=== PATIENT | female | born 1995 | race Caucasian/White ===

== ENCOUNTER 2024-01-06 21:53 | Outpatient (REF) | payer OTHER, SELFPAY | END 2024-01-06 21:54 | disposition home or self-care (01) | LOC: LAB 21:53 | PROVIDERS: Visit Provider Obstetrics & Gynecology | DX: Z01.419 Encounter for gynecological examination (general) (routine) without abnormal findings (principal) | CPT/HCPCS: 88175 ==

== ENCOUNTER 2024-08-13 19:43 | Outpatient (REF) | payer OTHER, SELFPAY ==
--- OUTSIDE RECORDS SUMMARY | 2024-05-29 06:00 | XMS_ITS ---
Author Organization [facility] Address [address] [place], [place] [id number] Care Team Providers Care Certified Art Therapist Name Role Phone Chandni Cervantes Primary Care Provider Renetta Jiménez Unavailable [phone] REASON FOR VISIT 2 WEEK F/U Social History Sex Assigned At : Social History Observation Description Sex Assigned At Female Encounters Encounter Location Date Provider Diagnosis Main [address] [place], [place] [id number] 05/29/2024 Renetta Jiménez Plan Of Treatment No Information Progress Notes * Efrain VITALOB: 7 (29 yo F)Acc No.[id number]:05/29/2024 Patient: Adria LOPEZJoanna SMALLWOOD Provider: DEBI Redd :1995 A ge:29 Y S ex:Female Date:05/29/2024 Address:[address] [place] [address], [id number] Pcp:Chandni Cervantes Subjective: * Chief Complaints: * 1 . 2 WEEK F/U. * Medical History: Objective: * Vitals: Assessment: Plan: * Treatment: Care Plan: * Problems: * Billing Information: * Visit Code: * Procedure Codes: Care Plan Details* * Electronic signature of DEBI Cleveland on 08/13/2024 at 11:46 AM EDT Sign off status: Pending * Provider: DEBI Redd Date: 05/29/2024 Generated for Marcelino brooks/Deepali/Dayanaitting on: 0 08/13/2024 11:46 AM EDT
--- OUTSIDE RECORDS SUMMARY | 2024-08-13 11:50 | XMS_ITS | Encounter Summary ---
Author Organization [facility] Address [address] [place] [address] Care Team Providers Care Field Investigator Name Role Phone Unavailable Primary Care Provider Unavailabl e Reason for Visit * Reason Comments Breast Problem Encounter Details Date Type Department Care Team ([facility] Contact Info) Description 08/13/2024 11:50 AM EDT Office Visit [facility] [address] [place] [phone] Clem Orellana, DO [address] [facility] [address] [place], [place] [phone] Pain of both breasts; Menorrhagia with regular cycle; Nipple discharge Social History Tobacco Use Types Packs/Day Years Used Date Smoking Tobacco: Former Cigarettes 1 10 Q uit: 10/18/2021 Alcohol Use Standard Drinks/Week Comments Yes 0 (1 standard drink = 0.6 oz pure alcohol) Maybe once a month or every other month ill have a drink Comments No Sex and Gender Information Value Date Recorded Sex Assigned at Female 10/30/2023 10:24 PM EDT Legal Sex Female 11:47 PM EDT Gender Identity Female 10/30/2023 10:24 PM EDT Sexual Orientation Straight 10/30/2023 10 :24 PM EDT documented as of this encounter Last Filed Vital Signs Vital Sign Reading Time Taken Comments Blood Pressure 98/72 08/13/2024 12:10 PM EDT Pulse - - Temperature - - Respiratory Rate - - Oxygen Saturation - - Inhaled Oxygen Concentration - - Weight 80.4 kg (177 lb 4 oz) 08/13/2024 12:10 PM EDT Height - - Body Mass Index 32.42 01/06/2024 4:03 PM EDT documented in this encounter Plan of Treatment Upcoming Encounters Date Type Department Care Team (Late st Contact Info) Description 08/26/2024 8:00 AM EDT Office Visit [facility] [address] [facility] [place] [address] Clem Orellana, DO [address] [place] [address] Scheduled Orders Name Type Priority Associated Diagnoses Orde r Schedule CBC and differential Lab Routine Menorrhagia with regular cycle Ordered: 08/13/2024 TSH Lab Routine Menorrhagia with regular cycle Ordered: 08/13/2024 hCG, quantitative, Lab Routine Menorrhagia with regular cycle Ordered: 08/13/2024 Protime-INR Lab Routine Menorrhagia with regular cycle Ordered: 08/13/2024 T4, free Lab Routine Menorrhagia with regular cycle Ordered: 08/13/2024 APTT Lab Routine Menorrhagia with regular cycle Expected: 08/13/2024 (Approximate), Expires: 08/13/2025 Hemoglobin A1c Lab Routine Menorrhagia with regular cycle Ordered: 08/13/2024 Prolactin Lab Routine Pain of both breasts Nipple discharge Ordered: 08/13/2024 Anaerobic culture Microbiology Routine Pain of both breasts Nipple discharge Expected: 08/13/2024 (Approximate), Expires: 08/13/2025 Aerobic culture Microbiology Routine Pain of both breasts Nipple discharge Ordered: 08/13/2024 documented as of this encounter Visit Diagnoses Diagnosis Pain of both breasts Menorrhagia with regular cycle Nipple discharge Other sign and symptom in breast documented in this encounter
--- OUTSIDE RECORDS SUMMARY | 2024-08-13 19:48 | XMS_ITS | Clinical Summary ---
Author Organization [facility] Address [address] [place] [address] Care Team Providers Care Residential Installer Name Role Phone Unavailable Primary Care Provider Unavailabl e Allergies No known active allergies Medications sertraline (Zoloft) 50 MG tablet Take 50 mg by mouth Daily 12/14/2022 Active traZODone (Desyrel) 25 MG split tablet Take 25 mg by mouth at bedtime Active hydrOXYzine pamoate (Vistaril) 25 MG capsule Take 25 mg by mouth 1 (one) time each day at the same time 06/28/2023 Active ergocalciferol (Vitamin D-2) 1.25 MG (28424 UT) capsule 1 capsule 11/07/2023 Active amoxicillin-cla vulanate (Augmentin) 875-125 MG tabletIndicatio ns:Pain of both breasts,Nipple discharge Take 1 tablet (875 mg) by mouth in the morning and 1 tablet (875 mg) before bedtime. Do all this for 10 days. 20 tablet 08/13/2024 Active Encounters Date Type Department Care Team Description 08/13/2024 11:50 AM EDT Office Visit [facility] OB [address] [facility] [place] [phone] Clem Orellana, Pain of both breasts; Menorrhagia with regular cycle; Nipple discharge 08/13/2024 Bamboo flowsheet [facility] OB [address] [facility] [place] [phone] Clem Orellana DO 08/13/2024 Travel from Last 3 Months Family History Medical History Relation Name Comments Hypertension Father Dmitry Vital Breast cancer Mother Mothers side of family. Mul tiple. Endometriosis Mother Mothers side of family. Mul tiple. Relation Name Status Comments Father Dmitry Vital Mother Mothers side of family. Multiple. Social History Tobacco Use Types Packs/Day Years Used Date Smoking Tobacco: Former Cigarettes 1 10 Q uit: 10/18/2021 Tobacco Cessation:Counseling Given: Not Answered Alcohol Use Standard Drinks/Week Comments Yes 0 [...] Orientation Straight 10/30/2023 10 :24 PM EDT Last Filed Vital Signs Vital Sign Reading Time Taken Comments Blood Pressure 98/72 08/13/2024 12:10 PM EDT Pulse - - Temperature - - Respiratory Rate - - Oxygen Saturation - - Inhaled Oxygen Concentration - - Weight 80.4 kg (177 lb 4 oz) 08/13/2024 12:10 PM EDT Height 157.5 cm (5' 2 ) 01/06/2024 4:03 PM EDT Body Mass Index 32.42 01/06/2024 4:03 PM EDT Plan of Treatment Upcoming Encounters Date Type Department Care Team (Late st Contact Info) Description 08/26/2024 8:00 AM EDT Office Visit [facility] OB [address] [facility] [place] [address] Clem Orellana, [address] [place] [address] Health Maintenance Due Date Last Done Comments Influenza Vaccine Completed 05/28/2024, 11/15/2019 Insurance * Guarantor: Joanna Vital Account Type Relation to Patient Date of Phone Billing Address Personal/Family Self 1995 [address] [facility] [address] [place] [address] [employer] Member Subscriber Plan / Payer (Ef fective 2022-Present) Name:Joanna Vital Relation to Subscriber:Self Name:Amanuel Joanna Payer ID:Not on file Group ID:Not on file Type:Not on file Address: [address] [place] [address]
--- OUTSIDE RECORDS SUMMARY | 2024-08-13 19:48 | XMS_ITS | Clinical Summary ---
Author Organization [facility] Address [id number] [address] [place] [address] Care Team Providers Care Shipping Manager Name Role Phone Services, [facility] Primary Care Provider Allergies No known active allergies Medications sertraline (ZOLOFT) 50 mg tablet Take 1 tablet (50 mg total) by mouth in the morning. 12/14/2022 Active Active Problems No known active problems Encounters Date Type Department Care Team Description 06/01/2024 Telephone [facility] [address] [place] [address] Taylor Valdes CMA 06/01/2024 Telephone [facility] [address] [place] [address] Taylor Valdes CMA from Last 3 Months Social History Tobacco Use Types Packs/Day Years Used Date Smoking Tobacco: Former Cigarettes 1 9 0 11/22/2012 - 11/22/2021 Tobacco Cessation:Counseling Given: Not Answered Childcare Answer Date Recorded Childcare Unknown 08/20/2018 Employment Answer Date Recorded Employment Unknown 08/20/2018 Hunger Screening Answer Date Recorded Within the past 12 months we worried whether our food would run out before we got money to buy more. Never True 04/29/2024 Within the past 12 months th e food we bought just didn't last and we didn't have money to get more. Never True 04/29/2024 Comments Unknown Sex and Gender Information Value Date Recorded Sex Assigned at Not on file Legal Sex Female 11:53 AM EDT Gender Identity Not on file Sexual Orientation Not on file Last Filed Vital Signs Vital Sign Reading Time Taken Comments Blood Pressure 117/74 04/29/2024 10:41 AM EST Pulse 83 04/29/2024 10:40 AM EST Temperature 36.8 C (98.2 F) 04/29/2024 10:40 AM EST Respiratory Rate 18 04/29/2024 10:40 AM EST Oxygen Saturation 100% 04/29/2024 10:40 AM EST Inhaled Oxygen Concentration - - Weight 72.6 kg (160 lb) 04/29/2024 10:40 AM EST Height 157.5 cm (5' 2 ) 04/29/2024 10:40 AM EST Body Mass Index 29.26 04/29/2024 10:40 AM EST Plan of Treatment Health Maintenance Due Date Last Done Comments Depression Screening 2009 Tobacco Screening 2009 Adult BMI Follow Up Plan 2015 DTaP,Tdap and Td Vaccines (7 - Td or Tdap) 12/30/2019 12/29/2009, 11/27/2002, 11/14/2000, Additional history exists COVID-19 Vaccine (3 - 2023-2 5 season) 2023 10/03/2020, 09/05/2020 Influenza Vaccine 11/09/2024 05/28/2024, 11/15/2019 Adult BMI Screening 04/29/2025 04/29/2024 Pap Smear 01/05/2027 01/06/2024 Medical Devices Not on file Insurance * Guarantor: Joanna Vital Account Type Relation to Patient Date of Phone Billing Address Personal/Family Self [address] [place] [address] [employer] Member Subscriber Plan / Payer (Ef fective 2020-Present) Name:Joanna Vital Member ID:[id number] Relation to Subscriber:Self Name:Joanna Vital Subscriber ID:[id number] Payer ID:[id number] (NAIC) Type:Not on file Address: [facility] [address] [place] [address] [employer] Member Subscriber Plan / Payer (Ef fective 2022-Present) Name:Joanna Vital Relation to Subscriber:Self Name:Joanna Vital Payer ID:[id number] (NAIC) Group ID:Not on file Type:Not on file Address: [address] [address] Care Teams Shipping Manager Relationship Specialty Start Date End Date Services, [facility] [address] [place], [place] PCP - General Family Medicine 04/29/24
--- OUTSIDE RECORDS SUMMARY | 2024-08-13 19:48 | XMS_ITS | Data Portability ---
Author Organization [place] - [facility] , [facility] [place] Address [address] [place] [address] Assessment No assessment recorded. Plan of Treatment Reminders Order Date Submit Date Provider Last Modified By Organization Details Last Modified Time Details Appointments None recorded . Lab None recorded . Referral None recorded . Procedures None recorded . Surgeries None recorded . Imaging US, breast 025 04/02/19 25 [email or web address] Not available 09:03:23 Medication Orders None recorded . Patient TargetsNo targets recorded. Patient Instructions Encounter Date Encounter Id Patient Instructions Last Modified By Organization Details Last Modified Time 04/02/2024 [id number] nipple discharge : care instructions Not available 04/02/2024 12:22:24 breast lumps: care instructions Not available 04/02/2024 12:22:24 Reason for Referral None Reported. Problems Name Problem SNOMED Code Status Onset Date Resolution Date Notes Provider Name and Address Organization Details Recorded Time Depressive disorder [id number] Active Rosalinda Franklin [facility] [place] - Included [facility] 13:47:26 Problem Notes None recorded. Procedures Surgical History Date Name Laterality Status Provider Name and Address Organization Details Recorded Time procedure completed Rosalinda Franklin [facility] I [facility] 02/12/2024 13:47:57 Imaging Results None recorded. Procedure Notes None recorded. Medical Equipment None Reported. Allergies No known drug allergies Medications Name Sig Start Date Stop Date Status Note LastModified by Organization Details LastModified Time trazodone 50 mg tablet TAKE 1 TABLET BY MOUTH AT BEDTIME NEEDED FOR 30 DAYS active Not Available Not Available No t Available ibuprofen 800 mg tablet TAKE 1 TABLET BY MOUTH EVERY 8 HOURS active Not Available Not Available No t Available sertraline 100 mg tablet TAKE 1 TABLET BY MOUTH ONCE DAILY IN THE MORNING FOR 30 DAYS active Not Available Not Available No t Available ergocalcife rol (vitamin D2) 1,250 mcg (50,000 unit) capsule TAKE 1 CAPSULE BY MOUTH ONCE A WEEK active Not Available Not Available No t Available methylpredn isolone 4 mg tablets in a dose pack 04/02 completed Not Available Not Available Not Available sertraline 50 mg tablet TAKE 1 TABLET BY MOUTH ONCE DAILY IN THE MORNING 04/02 completed Not Available Not Available Not Available hydroxyzine pamoate 25 mg capsule TAKE 1 TO 2 CAPSULES BY MOUTH ONCE DAILY NEEDED FOR SLEEP active Not Available Not Available No t Available cyclobenzap rine 5 mg tablet 04/02 completed Not Available Not Available Not Available minocycline 50 mg tablet TAKE 1 TABLET BY MOUTH TWICE DAILY (IN THE MORNING AND BEFORE BEDTIME) 04/02 completed Not Available Not Available Not Available sertraline 50mg 04/02 completed Not Available Not Available Not Available Augmentin 01/15 completed Not Available Not Available Not Available Vitals None Recorded Social History None recorded. Functional Status None recorded. Mental Status None recorded. Family History Relationship Description Onset Age of this Age Resolved Age Notes LastModified by Organization Details LastModified Time Father No current problems or disability [email or web address] Not available 02/11 13:48:03 Mother No current problems or disability [email or web address] Not available 02/11 13:48:03 Medical History No medical history recorded. Gynecological HistoryNo gynecological history recorded. Obstetrics History GPAL:G 0 P 0 0 0 0 Past Encounters Encounter ID Performer Location Encounter Start Date Encounter Closed Date Diagnosis/Indication Diagnosis SNOMED-CT Code Diagnosis ICD10 Code Diagnosis Note [id number] AASHISH Still [facility] [address] [facility] [address] [place] [address] 04/02/2024 11:49:01 04/02/2024 18:22:52 Breast lump [id number] N63.0 Ultrasound ordered. I advised patient to use cold compress or soak a cloth in warm water and place on breast. I also advised tylenol or ibuprofen for pain relief. Patient also instructed to avoid tight fitting clothes. Advised to schedule appt with pcp or information technology security analyst for further eval. I advised the patient if their symptoms worsen or do not improve, to call us back or seek in person care. Diagnosis and treatment plan discussed with the patient, and they voice agreement and understand ing of the plan. Discharge from nipple 54 [id number] N64.52 Health Concerns Section Related Observation LastModified by Organization Detai ls LastModified Time None Recorded Concern Status LastModified by Organization Details LastModified Time None Recorded Advance Directives Directive None Recorded Payers Insurance Date Sequence Insurance Name Policy Number Policy Ramirez Covered Member ID Ramirez Member ID Guarantor Name 01/26/2024 1 *SELF PAY* Jarra Vital [place] Jarra Vital 01/17/2024 1 *SELF PAY* Ja rra Vital 04/15/2024 1 DMITRI ORELLANA [facility] [id number] Jarra Vital [id number] Jarra Vital 04/09/2024 DMITRI ORELLANA [id number] Jarra Vital [id number] Jarra Vital 04/02/2024 2 *SELF PAY* [id number] Jarra Vital [id number] Jarra Vital Notes Date Note Type Note Provider Name and Address Organization Details Recorded Time 04/02/2024 text/html Call connected, patient greeted. Patient name, , telephone number, and location verified verbally with the patient. Telemedicine limitations reviewed, answered all questions the patient had about the telehealth interaction, and verbal consent obtained to treat. Clinician attests they are physically located in the following state at the time of visit : [place] CC: questionAge: 29Gender: f HPI:She has hx of endometriosis. Right before her period she gets lumps in her breast and breast pain. This pain usually goes away.Currently she has a lump on her right breast that has been there for a week. She noticed discharge coming from her nipple today that was brownish/green. The discharge isn't persistent currently.She does have some breast pain/nipple pain.She started spotting 4 days ago but period hasn't technically started.LMP around February 27.No possibility of .Pain is about 3/10.no fever.no skin redness. no nipple redness or swelling.Family hx: breast cancer on mom's side of the familyno new medications Not . Physical Exam:General: no acute distress, appears stated age, appropriately responsiveHEENT: NCAT, EOMIRespiratory: no respiratory distress, speaking in complete sentencesSkin: no visible rash or jaundicePsych: normal affect, no pressured speechSkin: nickel sized lump noted to medial aspect of right breast, no nipple discharge, no nipple swelling, no erythema AASHISH Still [address] [place] [address] [address], [place], [address], [facility] 04/02/2024 12:24:12 OBGyn Episode No OBEpisode recorded.
--- OUTSIDE RECORDS SUMMARY | 2024-08-13 19:48 | XMS_ITS | Encounter Summary ---
Author Organization [facility] Address [address] [place] [address] Care Team Providers Care Freelance Court Stenographer Name Role Phone Unavailable Primary Care Provider Unavailabl e Encounter Details Date Type Department Care Team (Latest Contact Info) Description 08/13/2024 Travel Social History Tobacco Use Types Packs/Day Years [...] PM EDT documented as of this encounter Plan of Treatment Upcoming Encounters Date Type Department Care Team (Late st Contact Info) Description 08/26/2024 8:00 AM EDT Office Visit [facility] [address] [address] Clem Orellana, DO [address] [place] [address] documented as of this encounter Visit Diagnoses Not on filedocumented in this encounter
--- OUTSIDE RECORDS SUMMARY | 2024-08-13 19:48 | XMS_ITS | Encounter Summary ---
Author Organization [facility] Address [address] [facility] [place] [address] Care Team Providers Care Checkroom Attendant Name Role Phone Unavailable Primary Care Provider Unavailabl e Encounter Details Date Type Department Care Team ([facility] Contact Info) Description 01/15/2024 Orders Only [facility] [address] [place] [address] Yuni Celeste LPN [address] [place] [address] Social History Tobacco Use Types Packs/Day Years [...] Upcoming Encounters Date Type Department Care Team ([facility] Contact Info) Description 08/26/2024 8:00 AM EDT Office Visit [facility] [address] [facility] [facility] [place] [address] Clem Orellana DO [address] [place] [address] [address], [place] [id number] documented as of this encounter Procedures Procedure Name Priority Date/Time Associated Diagnosis Comments PAP SMEAR Routine 01/06/2024 12:00 AM EDT documented in this encounter Results * Pap Smear (01/06/2024 12:00 AM EDT) Swab Cervical swab / Unknown us Clem Orellana DO LAB CYTOLOGY ORDERABLES Final Re sult EXTERNAL LAB documented in this encounter Visit Diagnoses Not on filedocumented in this encounter
--- OUTSIDE RECORDS SUMMARY | 2024-08-13 19:48 | XMS_ITS | Encounter Summary ---
Author Organization [facility] Address [address] [place] [address] Care Team Providers Care Command Post Craftsman Name Role Phone Unavailable Primary Care Provider Unavailabl e Encounter Details Date Type Department Care Team (Late Contact Info) Description 08/13/2024 Bamboo flowsheet [facility] [address] [place] [address] Clem Orellana, DO [address] [place] [address] Social History Tobacco Use Types Packs/Day [...] Encounters Date Type Department Care Team (Late Contact Info) Description 08/26/2024 8:00 AM EDT Office Visit [facility] [address] [place] [address] Clem Orellana, [facility] [place], [place] [id number] documented as of this encounter Visit Diagnoses Not on filedocumented in this encounter
--- OUTSIDE RECORDS SUMMARY | 2024-08-13 19:50 | XMS_ITS | CCD ---
Author Organization [facility] Care Team Providers Care Track Greaser Name Role Phone PHYSICIAN, DEFAULT Unavailable Unavailable PHYSICIAN, DEFAULT Unavailable Unavailable Gladis Lopez CNP Primary Care Provider CADE CROWLEY Primary Care Unavailable ESTEBAN, DR BALTAZAR Admitting Unavailable ESTEBAN, DR BALTAZAR Attending Unavailable ESTEBAN, DR BALTAZAR Consulting Unavailable ZIEBER, DR AMADEO Galicia Consulting Unavailable ESTEBAN, DR BALTAZAR Admitting Unavailable ESTEBAN, DR BALTAZAR Attending Unavailable ESTEBAN, DR BALTAZAR Consulting Unavailable CADE CROWLEY Primary Care Unavailable KEO, CADE Primary Care Unavailable ESTEBAN, DR BALTAZAR Admitting Unavailable ESTEBAN, DR BALTAZAR Attending Unavailable ESTEBAN, DR BALTAZAR Consulting Unavailable REQUEST, DR BERMAN LISTED Primary Care Unavaila ble ESTEBAN, DR BALTAZAR Admitting Unavailable ESTEBAN, DR BALTAZAR Attending Unavailable CADE CROWLEY Primary Care Unavailable ESTEBAN, DR BALTAZAR Admitting Unavailable ESTEBAN, DR BALTAZAR Attending Unavailable ESTEBAN, DR BALTAZAR Consulting Unavailable ESTEBAN, DR BALTAZAR Primary Care Unavailable ESTEBAN, DR BALTAZAR Admitting Unavailable ESTEBAN, DR BALTAZAR Attending Unavailable ESTEBAN, DR BALTAZAR Consulting Unavailable SARAH HESTER Consulting Unavailable PILY LAZO Attending Unavailable SULLY DAWSON Referring Unavailable SULLY DAWSON Primary Care Unavailable Unavailable Primary Care Provider Unavailqian e DELANEY ORELLANA Attending Unavailable DELANEY ORELLANA Attending Unavailable Sully Dawson DO Primary Care Provider [phone] SERVICES, [facility] Primary Care Unava ilSANDY May Attending Unavailable Services, [facility] Primary Care Provider Medications Current Medications Medication Drug Class(es) Dates Sig (Normalized) Sig (Original) ergocalciferol 1.25 mg oral capsule (3 sources) Provitamin D2 Compound Start: 11-07-2023 ergocalciferol (Vitamin D-2) 1.25 MG (85864 UT) capsule 1 capsule 11/07/2023 Active famotidine 40 mg oral tablet (2 sources) Histamine-2 Receptor Antagonist Start: 09-05-2020 Famotidine 40 MG Oral Tablet 09/05/2020 Provider: Gladis Lopez CNP hydrOXYzine pamoate 25 mg oral capsule (6 sources) Antihistamine Start: 06-28-2023 take 1 capsule by mouth once daily hydrOXYzine pamoate (Vistaril) 25 MG capsule Take 25 mg by mouth 1 (one) time each day at the same time 06/28/2023 Active ibuprofen 800 mg oral tablet (3 sources) Nonsteroidal Anti-inflammatory Drug Start: 01-06-2024 End: 02-05-2024 take 1 tablet by mouth every eight hours ibuprofen 800 MG tablet Indications: Endometriosis, vagina Take 1 tablet (800 mg) by mouth every 8 (eight) hours 30 tablet 2 01/06/2024 02/05/2024 Active minocycline 50 mg oral tablet (2 sources) Tetracycline-class Drug Start: 11-05-2023 End: 12-05-2023 take 1 tablet by mouth in the morning minocycline (Dynacin) 50 MG tablet Indications: Acne, unspecified acne type Take 1 tablet (50 mg) by mouth in the morning and 1 tablet (50 mg) before bedtime. 60 tablet 1 11/05/2023 12/05/2023 Active sertraline 50 mg oral tablet (15 sources) Serotonin Reuptake Inhibitor Start: 12-14-2022 take 1 tablet by mouth in the morning sertraline (ZOLOFT) 50 mg tablet Take 1 tablet (50 mg total) by mouth in the morning. 12/14/2022 Active Start: 08-22-2020 Sertraline HCl 25 MG Oral Tablet 08/22/2020 Provider: Gladis Lopez CNP traZODone (Desyrel) 25 MG split tablet (6 sources) take 1 tablet by keena th at bedtime traZODone (Desyrel) 25 MG split tablet Take 25 mg by mouth at bedtime Active Problems Active Problems Problem Classification Problem Date Documented Date Episodic/Chronic Alcohol-related disorders (3 sources) Alcohol abuse; Translations: [Alcohol abuse, unspecified] Onset: 08-24-2020 Chronic Anxiety disorders (12 sources) Generalized anxiety disorder; Translations: [Generalized anxiety disorder] Onset: 08-22-2020 Chronic Coma; stupor; and brain damage (2 sources) Somnolence; Translations: [Daytime somnolence] Onset: 05-22-2023 05-22-2023 Episodic Endometriosis (4 sources) Endometriosis of vagina; Translations: [Endometriosis, vagina] 01-06-2024 Chronic Esophageal disorders (3 sources) Gastroesophageal reflux disease without esophagitis; Translations: [Reflux esophagitis] Onset: 09-05-2020 Chronic Inflammatory diseases of female pelvic organs (1 source) Female pelvic peritoneal adhesions (postinfective); Translations: [FE PELV PERITON ADHES POSTINFECTIVE] Onset: 04-20-2021 Episodic Menstrual disorders (6 sources) Irregular menstruation, unspecified; Translations: [Menorrhagia] Onset: 11-30-2020 Chronic Miscellaneous mental health disorders (2 sources) depression; Translations: [Mental disorders of mother, unspecified as to episode of care or not applicable] Onset: 09-05-2020 Episodic Mood disorders (11 sources) Depressive disorder; Translations: [Major depressive disorder, single episode, unspecified] Onset: 08-22-2020 Chronic Mood disorders (1 source) Mood disorders; Translations: [DEPRESSION UNSPECIFIED] Onset: 04-20-2021 Nonmalignant breast conditions (2 sources) Unspecified lump in the right breast, lower outer quadrant; Translations: [Mastodynia] Onset: 04-29-2024 Episodic Nutritional deficiencies (3 sources) Vitamin D deficiency; Translations: [Unspecified vitamin D deficiency] Onset: 08-22-2020 Chronic Nutritional deficiencies (3 sources) Vitamin B12 deficiency (non anemic); Translations: [Other B-complex deficiencies] Onset: 08-22-2020 Episodic Other aftercare (1 source) Other retirement (current) drug therapy; Translations: [OTH SENIOR CARE CURRENT DRUG THERAPY] Onset: 04-20-2021 Episodic Other female genital disorders (1 source) Unspecified dyspareunia; Translations: [UNSPECIFIED DYSPAREUNIA] Onset: 04-20-2021 Chronic Other female genital disorders (2 sources) Anand; Translations: [Nadeemteclaudia] 11-05-2023 Chronic Other female genital disorders (1 source) Other specified noninflammatory disorders of uterus; Translations: [OTH SPEC NONINFLAMMATORY D/O UTERUS] Onset: 04-20-2021 Episodic Other nutritional; endocrine; and metabolic disorders (5 sources) Finding of body mass index; Translations: [Body mass index (observable entity)] Onset: 08-22-2020 Episodic Other nutritional; endocrine; and metabolic disorders (3 sources) Overweight; Translations: [Overweight] Onset: 08-22-2020 Episodic Residual codes; unclassified (1 source) Obstructive sleep apnea syndrome; Translations: [Obstructive sleep apnea (adult) (pediatric)] 05-22-2023 Chronic Residual codes; unclassified (1 source) Finding related to sleep; Translations: [Sleep apnea, unspecified] 10-07-2023 Chronic Substance-related disorders (6 sources) Tobacco dependence syndrome; Translations: [Tobacco use disorder] Onset: 08-22-2020 Chronic Thyroid disorders (3 sources) Hypothyroidism; Translations: [Unspecified acquired hypothyroidism] Onset: 08-22-2020 Chronic Unclassified (1 source) CONTACT W/AND (SUSP) EXPOS COVID-19; Translations: [CONTACT W/AND (SUSP) EXPOS COVID-19] Onset: 01-21-2021 Unclassified (1 source) Breast Pain Onset: 04-29-2024 Unclassified (1 source) Body Aches Onset: 04-29-2024 Past or Other Problems Problem Classification Problem Date Documented Da te Episodic/Chronic Abdominal pain (7 sources) Pelvic and perineal pain; Translations: [Pain in female pelvis] Onset: 01-13-2021 Episodic Immunizations and screening for infectious disease (6 sources) HIV screening; Translations: [Special screening examination for other specified viral diseases] Onset: 08-22-2020 Episodic Malaise and fatigue (1 source) Fatigue; Translations: [Other fatigue] 05-22-2023 Episodic Other screening for suspected conditions (not mental disorders or infectious disease) (7 sources) Encounter for screening for diabetes mellitus; Translations: [Diabetes Risk Test Score] Onset: 08-22-2020 Episodic Other skin disorders (2 sources) Acne; Translations: [Acne, unspecified] 11-05-2023 Episodic Screening and history of mental health and substance abuse codes (1 source) Ex-smoker; Translations: [Personal history of nicotine dependence] 05-22-2023 Episodic Results Test Name Value Interpretation Reference Range Facil ity IGP,APTIMA HPV,AGE GDLNon AGE GDLN ACOG TESTING Note . [facility] Comment on above: TESTS RESULT FLAG UN ITS REF RANGE LAB Clinician Provided Cytology Information Source.............Cervix;Endocervix No. of containers..01 ThinPrep Vial Age Algo ACOG Lizz... FLAG LEGEND: L-Low Normal,H-High Normal,LL-Alert Low,HH-Alert High <-Panic Low,>-Panic High,A-Abnormal,AA-Critical Abnormal Performed at: 01 =G [address] [id number] Paulette Mcgarry MD, IGP, RFX APTIMA HPV ASCU Note . [facility] Comment on above: TESTS RESULT FLAG UN ITS REF RANGE LAB DIAGNOSIS: 02 NEGATIVE FOR INTRAEPITHELIAL LESION OR MALIGNANCY. Specimen adequacy: 02 Satisfactory for evaluation. No endocervical component is identified. Performed by: 02 Vivek Layne Social Psychologist (ASCP) . 02 Note: Note 02 The Pap smear is a screening test designed to aid in the detection of premalignant and malignant conditions of the uterine cervix. It is not a diagnostic procedure and should not be used as the sole means of detecting cervical cancer. Both false-positive and false-negative reports do occur. Test Methodology: Note 02 This liquid based ThinPrep(R) pap test was screened with the use of an image guided system. . 02 The HPV DNA reflex criteria were not met with this specimen result therefore, no HPV testing was performed. FLAG LEGEND: L-Low Normal,H-High Normal,LL-Alert Low,HH-Alert High <-Panic Low,>-Panic High,A-Abnormal,AA-Critical Abnormal Performed at: [address] [id number] Paulette Mcgarry MD, Performed at: = - [facility] [id number] Extruder Operator Horizontal: Paulette Mcgarry MD, Phone: [phone] Performed at: - [facility] [id number] Extruder Operator Horizontal: Paulette Mcgarry MD, Phone: [phone] BRUSH-SPATULA CERVIX ENDOCERVIX [facility] CBC AUTO DIFFon 01-19-2021 BASO # 0.0 103/ul Normal 0.0-0.[address] [facility] Comment on above: Performed By: #### C BC #### [facility] [address] [place] [address] Dr. Anival Meehan Basophils/100 WBC (Bld) 0.4 % Normal 0.2-2.[address] [facility] Comment on above: Performed By: #### C BC #### [facility] [address] [place] [address] Dr. Anival Meehan EO # 0.2 103/ul Normal 0.0-0.[address] [facility] Comment on above: Performed By: #### C BC #### [facility] [address] [place] [address] Dr. Anival Meehan Eosinophils/100 WBC (Bld) 2.1 % Normal 0.9-7.[address] [facility] Comment on above: Performed By: #### C BC #### [facility] [address] [place] [address] Dr. Anival Meehan Erythrocyte distribution width (RBC) [Ratio] 11.4 % Normal 11.0-15.[address] [facility] Comment on above: Performed By: #### C BC #### [facility] [address] [place] [address] Dr. Anival Meehan Hematocrit (Bld) [Volume fraction] 38.6 % Normal 36.0-48.[address] [facility] Comment on above: Performed By: #### C BC #### [facility] [address] [place] [address] Dr. Anival Meehan Hemoglobin (Bld) [Mass/Vol] 13.1 g/dL Normal 12.0-16.[address] [facility] Comment on above: Performed By: #### C BC #### [facility] [address] [place] [address] Dr. Anival Meehan IG # 0.02 10e3/ul Normal 0.00-0.[address] [facility] Comment on above: Performed By: #### C BC #### [facility] [address] [place] [address] Dr. Anival Meehan IG % 0.2 % Normal 0.0-0.[address] [facility] Comment on above: Performed By: #### C BC #### [facility] [address] [place] [address] Dr. Anival Meehan LYMPH # 2.6 103/ul Normal 1.2-3.[address] [facility] Comment on above: Performed By: #### C BC #### [facility] [address] [place] [address] Dr. Anival Meehan Lymphocytes/100 WBC (Bld) 30.5 % Normal 20.5-60.[address] [facility] Comment on above: Performed By: #### C BC #### [facility] [address] [place] [address] Dr. Anival Meehan MANUAL DIFF REQ NO Normal [facility] Comment on above: Performed By: #### C BC #### [facility] [address] [place] [address] Dr. Anival Meehan MCH (RBC) [Entitic mass] 29.8 pg Normal 26.7-34.[address] [facility] Comment on above: Performed By: #### C BC #### [facility] [address] [place] [address] Dr. Anival Meehan MCHC (RBC) [Mass/Vol] 33.9 g/dL Normal 29.9-35.[address] [facility] Comment on above: Performed By: #### C BC #### [facility] [address] [place] [address] Dr. Anival Meehan MCV (RBC) [Entitic vol] 87.7 fL Normal 81.0-99.[address] [facility] Comment on above: Performed By: #### C BC #### [facility] [address] [place] [address] Dr. Anival Meehan MONO # 0.6 103/ul Normal 0.3-0.[address] [facility] Comment on above: Performed By: #### C BC #### [facility] [address] [place] [address] Dr. Anival Meehan Monocytes/100 WBC (Bld) 7.2 % Normal 1.7-12.[address] [facility] Comment on above: Performed By: #### C BC #### [facility] [address] [place] [address] Dr. Anival Meehan NEUT # 5.0 103/ul Normal 1.4-6.[address] [facility] Comment on above: Performed By: #### C BC #### [facility] [address] [address] [address] Anival Meehan Neutrophils/100 WBC (Bld) 59.6 % Normal 43.0-75.[address] [facility] Comment on above: Performed By: #### C BC #### [facility] [address] [address] [address] Anival Meehan Platelet mean volume (Bld) [Entitic vol] 11.1 fL Normal 9.5-13.[address] [facility] Comment on above: Performed By: #### C BC #### [facility] [address] [address] [address] Anival Meehan PLT 232 103/ul Normal 150-[address] [facility] Comment on above: Performed By: #### C BC #### [facility] [address] [place] [address] Dr. Anival Meehan RBC 4.40 106/ul Normal 4.20-5.[address] [facility] Comment on above: Performed By: #### C BC #### [facility] [address] [place] [address] Dr. Anival Meehan WBC 8.4 103/ul Normal 4.0-11.[address] [facility] Comment on above: Performed By: #### C BC #### [facility] [address] [place] [address] Dr. Anival Meehan PREG QUANT HCGon 01-19-2021 HCG QUANT <1 Normal [facility] Comment on above: Performed By: #### P REGQNT #### [facility] [address] [place] [address] Dr. Anival Meehan HCG RANGE SEE BELOW Normal [facility] Comment on above: Result Comment: 5-50 0-1 WEEK 40-300 1-2 WEEKS 100-1,000 2-3 WEEKS 500-6,000 3-4 WEEKS 5,000-200,000 1-2 MONTHS 10,000-100,000 2-3 MONTHS 3,000-50,000 2ND TRIMESTER 1,000-50,000 3RD TRIMESTER Performed By: #### P REGQNT #### [facility] [address] [place] [id number] [address] Anival Meehan Cov[facility]-19 PCR ([facility])on SARS-CoV-2 (COVID-19) RNA ROXANNA+probe Ql (Unsp spec) Not detected Normal NOT DETECTED [facility] Comment on above: Result Comment: This test is not yet approved or cleared by the [place] FDA. When there are no FDA-approved or cleared tests available, and other criteria are met, FDA can make tests available under an emergency access mechanism called an Emergency Use Authorization (EUA). The EUA for this test is supported by the [place] of Health and Human Service's (HHS's) declaration that circumstances exist to justify the emergency use of in vitro diagnostics for the detection and/or diagnosis of the virus that causes COVID-19. This EUA will remain in effect (meaning this test can be used) for the duration of the COVID-19 declaration justifying emergency of IVDs, unless it is terminated or revoked by FDA (after which the test may no longer be used). When diagnostic testing is negative, the possibility of a false negative should be considered in the context of a patient's recent exposures and the presence of clinical signs and symptoms consistent with SARS-CoV-2. Performed By: #### C [facility] #### [facility] [address] [place], [place] [id number] Dr. Anival Meehan US PELVIS AND TRANSVAGon US PELVIS AND TRANSVAG EXAMINATION: US PELVIS AND TRANSVAG HISTORY: Pelvic and perineal pain ; chronic COMPARISON: No relevant comparison available. TECHNIQUE: Transabdominal and transvaginal sonographic examination. FINDINGS: UTERUS: Normal size and appearance. Uterus size: 8.6 x 5.1 x 3.8 cm ENDOMETRIUM: Normal homogeneous appearance. Endometrial thickness: 4 mm RIGHT OVARY: Normal size and appearance. Duplex Doppler demonstrates normal waveform and flow; resistive index 0.51. Ovary size: 3.6 x 2.9 x 2.5 cm LEFT OVARY: Normal size and appearance. Duplex Doppler demonstrates normal waveform and flow; resistive index 0.54. Ovary size: 3.6 x 2.8 x 3.2 cm CUL-DE-SAC: Unremarkable. No significant free fluid. BLADDER: Unremarkable. OTHER: None. IMPRESSION: 1. Normal appearance of uterus and ovaries. No suspicious findings to account for patient's symptoms. Electronically authenticated by: AMADEO BURNS Date: 2021-01-06 10:[address] [facility] PAP ACOG PANEL 2: 21 to 29on 01-03-2021 . . Normal [facility] Comment on above: Performed By: #### [id number] #### [facility] [address] [place] [address] Dr. Anival Meehan Age Gdln ACOG Testing Normal [facility] Comment on above: Performed By: #### [id number] #### [facility] [address] [place] [address] Dr. Anival Meehan DIAGNOSIS: Comment [facility] Comment on above: Result Comment: NEGA TIVE FOR INTRAEPITHELIAL LESION OR MALIGNANCY. Performed By: #### [id number] #### [facility] [address] [place] [address] Dr. Anival Meehan Methodology: Comment Normal [facility] Comment on above: Result Comment: This liquid based ThinPrep(R) pap test was screened with the use of an image guided system. Performed By: #### [id number] #### [facility] [address] [place] [address] Dr. Anival Meehan Note: Comment [facility] Comment on above: Result Comment: The Pap smear is a screening test designed to aid in the detection of premalignant and malignant conditions of the uterine cervix. It is not a diagnostic procedure and should not be used as the sole means of detecting cervical cancer. Both false-positive and false-negative reports do occur. . Performed By: #### [id number] #### [facility] [address] [place] [address] Dr. Anival Meehan Performed by: Comment Normal [facility] Comment on above: Result Comment: Reece Cerda, Social Psychologist Performed By: #### [id number] #### [facility] [address] [place] [address] Dr. Anival Meehan Reflex Criteria: Comment Normal [facility] Comment on above: Result Comment: The HPV DNA reflex criteria were not met with this specimen result therefore, no HPV testing was performed. . Performed By: #### [id number] #### [facility] [address] [place] [address] Dr. Anival Meehan Specimen adequacy: Comment Normal [facility] Comment on above: Result Comment: Sati sfactory for evaluation. Endocervical and/or squamous metaplastic cells (endocervical component) are present. Performed By: #### [id number] #### [facility] [address] [place] [address] Dr. Anival Meehan PREG QUANT HCGon 11-30-2020 HCG QUANT <[address] [facility] Comment on above: Performed By: #### P REGQNT #### [facility] [address] [place] [address] Dr. Anival Meehan HCG RANGE SEE BELOW Normal [facility] Comment on above: Result Comment: 5-50 0-1 WEEK 40-300 1-2 WEEKS 100-1,000 2-3 WEEKS 500-6,000 3-4 WEEKS 5,000-200,000 1-2 MONTHS 10,000-100,000 2-3 MONTHS 3,000-50,000 2ND TRIMESTER 1,000-50,000 3RD TRIMESTER Performed By: #### P REGQNT #### [facility] [address] [place] [address] Dr. Anival Meehan Vital Signs Date Time Vital Sign Value Performing Clinician Facility 01-06-2024 [id number] Body height 157.5 cm [facility] Work Phone: [facility] 01-06-2024 16:03-0400 Body mass index (BMI) [Ratio] 30.36 kg/m2 [facility] Work Phone: [facility] 01-06-2024 16:03-0400 Body weight 75.3 kg [facility] Work Phone: [facility] 01-06-2024 16:03-0400 Diastolic blood pressure 68 mm[Hg] [facility] Work Phone: [facility] 01-06-2024 16:03-0400 Systolic blood pressure 108 mm[Hg] Delaney Esteban DO Work Phone: [facility] 11-05-2023 14:38-0400 Body height 157.5 cm Delaney Esteban DO Work Phone: [facility] 11-05-2023 14:38-0400 Body mass index (BMI) [Ratio] 29.78 kg/m2 Delaney Esteban DO Work Phone: [facility] 11-05-2023 14:38-0400 Body weight 73.85 kg Delaney Esteban DO Work Phone: [facility] 11-05-2023 14:38-0400 Diastolic blood pressure 60 mm[Hg] Delaney Esteban DO Work Phone: [facility] 11-05-2023 14:38-0400 Systolic blood pressure 110 mm[Hg] Delaney Esteban DO Work Phone: [facility] 09-05-2020 18:11-0400 Body height 158.75 cm Gladis Lopez [employer] Work Phone: [facility] Work Phone: 09-05-2020 18:11-0400 Body mass index (BMI) [Ratio] 26.6 kg/m2 Gladis Lopez CNP Work Phone: [facility] Work Phone: 09-05-2020 18:11-0400 Body surface area Derived from formula 1.69 m2 Gladis Lopez [employer] Work Phone: [facility] Work Phone: 09-05-2020 18:11-0400 Body temperature 97.3 [degF] Gladis Lopez CNP Work Phone: [facility] Work Phone: 09-05-2020 18:11-0400 Body weight 67.13 kg Gladis Lopez CNP Work Phone: [facility] Work Phone: 09-05-2020 18:11-0400 Diastolic blood pressure 70 mm[Hg] Gladis Lopez CNP Work Phone: [facility] Work Phone: 09-05-2020 18:11-0400 Heart rate 75 /min Gladis Lopez CNP Work Phone: [facility] Work Phone: 09-05-2020 18:11-0400 Respiratory rate 18 /min Gladis Lopez CNP Work Phone: [facility] Work Phone: 09-05-2020 18:11-0400 SaO2% (BldA) [Mass fraction] 99 % Gladis Lopez CNP Work Phone: [facility] Work Phone: 09-05-2020 18:11-0400 Systolic blood pressure 110 mm[Hg] Gladis Lopez CNP Work Phone: [facility] Work Phone: 08-22-2020 18:24-0400 Body height 158.75 cm Gladis Lopez CNP Work Phone: [facility] Work Phone: 08-22-2020 18:24-0400 Body mass index (BMI) [Ratio] 26.8 kg/m2 Gladis Lopez CNP Work Phone: [facility] Work Phone: 08-22-2020 18:24-0400 Body surface area Derived from formula 1.7 m2 Gladis Lopez CNP Work Phone: [facility] Work Phone: 08-22-2020 18:24-0400 Body temperature 96.4 [degF] Gladis Lopez [employer]ICER Work Phone: [facility] Work Phone: 08-22-2020 18:24-0400 Body weight 67.59 kg Gladis Lopez [employer]ER Work Phone: [facility] Work Phone: 08-22-2020 18:24-0400 Diastolic blood pressure 60 mm[Hg] Gladis Lopez [employer] OFFICER Work Phone: [facility] Work Phone: 08-22-2020 18:24-0400 Heart rate 82 /min Gladis Lopez [employer] OFFICER Work Phone: [facility] Work Phone: 08-22-2020 18:24-0400 Respiratory rate 18 /min Gladis Lopez [employer] OFFICER Work Phone: [facility] Work Phone: 08-22-2020 18:24-0400 SaO2% (BldA) [Mass fraction] 96 % Gladis Lopez [employer] OFFICER Work Phone: [facility] Work Phone: 08-22-2020 18:24-0400 Systolic blood pressure 118 mm[Hg] Gladis Lopez [employer] OFFICER Work Phone: [facility] Work Phone: Encounters Encounter Date Encounter Type Care Provider Facility Start: 06-01-2024 End: 06-01-2024 Telephone encounter Taylor Valdes CMA [facility] Start: 04-29-2024 End: 04-29-2024 Emergency department patient visit [facility] Start: 01-06-2024 End: 01-06-2024 Patient encounter procedure Delaney Orellana Primavista Work Phone: [facility] Start: 01-06-2024 End: 01-06-2024 Periodic preventive med est patient 18-39 yrs Delaney Orellana DO Work Phone: [facility] Comment on above: Well woman exam with routine gynecological exam; Endometriosis, vagina Start: 01-06-2024 End: 01-06-2024 ambulatory DELANEY ESTEBAN Not Available Start: 01-06-2024 End: 01-06-2024 Bamboo flowsheet Delaney Esteban DO Work Phone: [facility] Start: 01-06-2024 End: 01-14-2024 Bamboo flowsheet Delaney Esteban DO Work Phone: [facility] Start: 01-06-2024 End: 01-14-2024 Clinisync Result Encounter Delaney Esteban DO Work Phone: [facility] External Department Unsolicited Start: 11-05-2023 End: 11-05-2023 Office outpatient visit 15 minutes Delaney Esteban DO Work Phone: [facility] Comment on above: Endometriosis; Acne, unspecified acne type; Pelvic pain in female; Menorrhagia with regular cycle; Mittelsronalz Start: 11-05-2023 End: 11-05-2023 ambulatory DELANEY ESTEBAN Not Available Start: 11-05-2023 End: 11-05-2023 Bamboo flowsheet Delaney Esteban DO Work Phone: [facility] Start: 11-05-2023 End: 11-05-2023 Bamboo flowsheet Delaney Esteban DO Work Phone: [facility] Start: 10-07-2023 End: 10-07-2023 Telephone encounter Orders Support User Transcribe [facility] Comment on above: Sleep Lab (HST ) Sleep-related breath ing disorder (Primary Dx) Start: 05-24-2023 Telephone encounter Pily thomson SALES SERVICE TECHNICIAN-[employer] OFFICER Work Phone: [facility] Comment on above: Sleep Lab (PSG) Start: 05-22-2023 End: 05-22-2023 [facility] Start: 05-22-2023 End: 05-22-2023 Office outpatient visit 25 minutes Pily Lazo APRN-[employer] OFFICER Work Phone: [facility] Comment on above: JOHAN (obstructive sle ep apnea) (Primary Dx); Daytime sleepiness; Fatigue, unspecified type; Former smoker Start: 01-21-2021 Encounter for preprocedural laboratory examination DR DELANEY ORELLANA [facility] Start: 01-19-2021 End: 01-19-[address] DELANEY ORELLANA Facility:[facility] Start: 01-16-2021 End: 01-17-2021 ambulatory CADE CROWLEY Facility:[facility] Start: 01-16-2021 End: 01-17-2021 Encounter for preprocedural laboratory examination ACDE CROWLEY Facility:[facility] Start: 01-13-2021 Encounter for other preprocedural examination DR DELANEY ORELLANA [facility] Start: 01-06-2021 End: 01-07-2021 ambulatory CADE CROWLEY Facility:[facility] Start: 01-06-2021 End: 01-07-2021 Encounter for other preprocedural examination DR BERMAN LISTED REQUEST Facility:[facility] Start: 12-28-2020 End: 12-28-2020 ambulatory CADE CROWLEY Facility:[facility] Start: 11-30-2020 End: 12-01-[address] DELANEY ORELLANA Facility:[facility] Start: 09-05-2020 End: 09-05-2020 [facility] visit, estab pt Jennie Martinez LPCC-S Work Phone: [facility] Work Phone: Start: 09-05-2020 End: 09-05-2020 FQHC visit, estab pt Gladis Lopez [employer] OFFICER Work Phone: [facility] Work Phone: Start: 08-24-2020 End: 08-24-2020 ambulatory Jennie Martinez LPCC-S Work Phone: [facility] Work Phone: Start: 08-22-2020 End: 08-22-2020 [facility]QHC visit new patient Gladis Lopez CNP Work Phone: [facility] Work Phone: Start: 08-22-2020 End: 08-22-2020 Viscer and infrarenal abdom aorta 1 prosthesis Gladis Lopez [employer] OFFICER Work Phone: [facility] Work Phone: Start: 10-01-2016 End: 10-02-2016 Ambulatory DEFAULT PHYSICIAN Facility:[facility] Procedures Date Procedure Procedure Detail Performing Clinician Start: 01-06-2024 IGP,APTIMA HPV,AGE GDLN Delaney Esteban DO Work Phone: Start: 01-06-2024 Microscopic observat ion [Identifier] in Cervix by Cyto stain Taylor Valdes CMA Start: 09-05-2020 Imm. administration COVID19 Moderna dose 1 Gladis Lopez [employer]ER Work Phone: Start: 09-05-2020 Most recent diastoli c blood pressure < 80 mm hg Gladis Lopez [employer] OFFICER Work Phone: Start: 09-05-2020 Most recent systolic blood pressure <130 mm hg Gladis Lopez [employer] OFFICER Work Phone: Start: 09-05-2020 Psychotherapy w/lisa ent 30 minutes Jennie Martinez LPCC-S Work Phone: Start: 09-05-2020 SARS-CoV-2 vaccine, 0.5ml Moderna Gladis Lopez [employer] OFFICER Work Phone: Start: 08-24-2020 Psychotherapy w/lisa ent 30 minutes Jennie Martinez LPCC-S Work Phone: Start: 08-22-2020 Antibody hiv-1&hiv-2 single result Gladis Lopez [employer] OFFICER Work Phone: Start: 08-22-2020 Hemoglobin glycosyla yves a1c Gladis Lopez [employer] OFFICER Work Phone: Start: 08-22-2020 Pt-focused hlth risk assmt score doc stnd instrm Gladis Lopez [employer] OFFICER Work Phone: NEGATED: Highlighted row has not occurred!Start: 08-22-2020 H/O: surgery Gladis Lopez [employer] OFFICER Work Phone: Plan of Treatment Date Care Activity Detail Author Start: 01-05-2027 Screening for malign ant neoplasm of cervix Pap Smear [facility] Start: 04-29-2025 Adult BMI Screening Adult BMI Screen ing [facility] Start: 01-06-2024 End: 01-06-2024 Patient encounter procedure [facility] Comment on above: Arrived Start: 11-10-2023 COVID-19 Vaccine ( season) COVID-19 Vaccine () [facility] Start: 11-10-2023 Influenza vaccination [facility] Start: 11-05-2023 End: 11-05-2023 Patient encounter procedure 11/05/2023 2:30 PM EDT Office Visit [facility] [address] [place] [id number] Delaney Orellana DO [address] [place] [address] Arrived [facility] Comment on above: Arrived Start: 11-05-2023 End: 11-04-2024 aPTT in Blood by Coagulation assay APTT Lab Routine Menorrhagia with regular cycle Expected: 11/05/2023 (Approximate), Expires: 11/04/2024 [facility] Comment on above: Expected: 11/05/2023 (Approximate), Expires: 11/04/2024 Start: 11-05-2023 End: 11-04-2024 US for US PELVIS-TRANSVAG IF INDICATED Imaging Routine Endometriosis Pelvic pain in female Menorrhagia with regular cycle Expected: 11/05/2023 (Approximate), Expires: 11/04/2024 [facility] Work Phone: Comment on above: Expected: 11/05/2023 (Approximate), Expires: 11/04/2024 Start: 10-18-2023 End: 10-18-2023 Clinical Support [facility] Start: 11-09-2022 COVID-19 Vaccine ( season) COVID-19 Vaccine () [facility] Start: 11-09-2022 Influenza vaccination Influenza Vacc ine [facility] Start: 10-03-2020 Nursing evaluation o f patient and report Nurse Visit [facility] Work Phone: Start: 09-19-2020 FQHC visit, estab pt Medical E stablished Patient [facility] Work Phone: Start: 09-05-2020 FQHC visit, estab pt Medical E stablished Patient [facility] Work Phone: Start: 08-29-2020 CBC W Auto Different ial panel - Blood [facility] Start: 12-30-2019 DTaP,Tdap and Td Vaccines (7 - Td or Tdap) DTaP,Tdap and Td Vaccines (7 - Td or Tdap) [facility] Start: 2018 Screening for malign ant neoplasm of cervix Pap Smear [facility] Start: 2015 Adult BMI Follow Up Plan Adult BMI Follow Up Plan [facility] Start: 2015 Adult BMI Screening Adult BMI Screen ing [facility] Start: 2009 Depression Screening Depression Scre ening [facility] Start: 2009 Tobacco Screening Tobacco Screening [facility] CBC W Auto Different ial panel - Blood CBC and differential Lab Routine Menorrhagia with regular cycle Ordered: 11/05/2023 [facility] Comment on above: Ordered: 11/05/2023 Cytology Cervical or vaginal smear or scraping study Pap Smear Pathology and Cytology Routine Well woman exam with routine gynecological exam Ordered: 01/06/2024 [facility] [employer] Work Phone: Comment on above: Ordered: 01/06/2024 hCG, quantitative, hCG, quantitative, Lab Routine Menorrhagia with regular cycle Ordered: 11/05/2023 [facility] Comment on above: Ordered: 11/05/2023 Hemoglobin A1c/Hemoglobin.total in Blood Hemoglobin A1c Lab Routine Menorrhagia with regular cycle Ordered: 11/05/2023 [facility] Comment on above: Ordered: 11/05/2023 End: 10-06-2024 Home sleep study Home sleep study Sleep Center Routine Sleep-related breathing disorder 1 Occurrences starting 10/07/2023 until 10/06/2024 [employer] Work Phone: Comment on above: 1 Occurrences starti ng 10/07/2023 until 10/06/2024 Prothrombin time (PT ) in Blood by Coagulation assay Protime-INR Lab Routine Menorrhagia with regular cycle Ordered: 11/05/2023 [facility] [employer] Comment on above: Ordered: 11/05/2023 End: 05-21-2024 [facility] Diagnostic [facility] Routine JOHAN (obstructive sleep apnea) 1 Occurrences starting 05/22/2023 until 05/21/2024 [employer] Work Phone: Comment on above: 1 Occurrences starti ng 05/22/2023 until 05/21/2024 Thyrotropin [Units/volume] in Serum or Plasma TSH Lab Routine Menorrhagia with regular cycle Ordered: 11/05/2023 [facility] [employer] Comment on above: Ordered: 11/05/2023 Thyroxine (T4) free [Mass/volume] in Serum or Plasma T4, free Lab Routine Menorrhagia with regular cycle Ordered: 11/05/2023 [facility] [employer] Comment on above: Ordered: 11/05/2023 Immunizations Immunization Date Immunization Notes Care Provider Mable richards 09-05-2020 2nd Dose MODERNA COVID-19 Vaccine; Translations: [Moderna COVID-19 Vaccine] Gladis Lopez CNP Work Phone: [facility] Work Phone: Comment on above: Note: Patient tolera yves well. No signs or symptoms of adverse reactions. Patient waited a minimum of 15 minutes. 11-15-2019 influenza virus vaccine, unspecified formulation Pily Lazo APRN-TRANSIT AUTHOR[employer] POLICE OFFICER [facility] Payers Date Payer Category Payer Medicaid [place] [employer] [place] [employer] [id number] 2022-Present [phone] [address] [id number] 2022 Medicaid HMO [place] [employer] Member Subscriber Plan / Payer (Effective 2022-Present) Name: Joanna Vital Relation to Subscriber: Self Name: Joanna Vital Payer ID: [id number] (NAIC) Group ID: Not on file Type: Not on file Address: [address] [place] [address] [id number] 05-13-2020 Commercial Managed C are - POS [employer]ET[employer] Member Subscriber Plan / Payer (Effective 2020-Present) Name: Joanna Vital Member ID: [id number] Relation to Subscriber: Self Name: Dennis Vitalra Tyson Subscriber ID: [id number] Payer ID: [id number] (NAIC) Type: Not on file Address: [address] [place] [address] [id number] 05-13-2020 Managed Care HMO (unspecified) [id number] 05-13-2020 Private Health Insurance AETNA AETNA POS II [id number] 05/13/2020-Present [phone] [address] [place] [address] [id number] 1997 Unknown [id number] [id number] 1997 Unknown [id number] [id number] 1997 Unknown [id number] [id number] 1997 Unknown [id number] [id number] 1997 Unknown [id number] [id number] 1997 Unknown [id number] [id number] 1997 Unknown [id number] [id number] 1997 Unknown [id number] [id number] 1997 Unknown [id number] [id number] 1997 Unknown [id number] 03-11-1957 Private Health Insurance [id number] 03-11-1957 Unknown [id number] Unknown Social History Date Type Detail Facility Assertion Tobacco user (finding) [facility] Work Phone: Start: 11-22-2012 End: 11-22-2021 Assertion Smoker (finding) [facility] Work Phone: Assertion Moderate cigaret te smoker (10-19 cigs/day) (finding) [facility] Work Phone: Assertion Exposure to poll ution (event) [facility] Work Phone: Assertion Social drinker (finding) [facility] Work Phone: Assertion [facility] Work Phone: Assertion Sexually active (finding) [facility] Work Phone: Start: 11-22-2012 End: 11-22-2021 Assertion Cigarette smoker (finding) [facility] Work Phone: Assertion Gender identity finding (finding) [facility] Work Phone: Assertion Finding of sexua l orientation (finding) [facility] Work Phone: Tobacco smoking status Unknown if ever smoked [facility] Start: 1997 Sex assigned at Female [facility] Start: 10-30-2023 Gender identity Identifies as female gender (finding) [facility] Start: 10-30-2023 Sexual orientation Heterosexual (fin ding) [facility] Start: 05-22-2023 End: 01-06-2024 Tobacco smoking status NHIS Ex-smoker [facility] Start: 01-06-2024 End: 04-29-2024 Cigarettes smoked current (pack per day) - Reported 1 [facility] Start: 01-06-2024 Alcoholic beverage intake Current drinker of alcohol (finding) [facility] Start: 01-06-2024 End: 04-29-2024 Tobacco use panel [facility] Start: 01-06-2024 Alcohol Comment Maybe once a m onth or every other month ill have a drink [facility] Start: 1995 Sex Assigned At Not on file P [facility] Start: 10-14-2014 Sex Female (finding) [facility] NEGATED: Highlighted row Assertion Finding relating to drug misuse behavior (finding) [facility] Work Phone: NEGATED: Highlighted row Assertion Tobacco user (finding) [facility] Work Phone: Mental Status Date Assessment Result Facility Cognitive function Cognitive fun ctioning was normal Cognitive function finding (finding) [facility] Work Phone: Clinical Notes 08-22-2020 to 06-01-2024 Telephone Encounter - Taylor Valdes CMA - 06/01/2024 8:27 AM EDTTelephone Encounter - Taylor Valdes CMA - 06/01/2024 8:27 AM EDTMflora Gutierres MA - 01/06/2024 3:40 PM EDT Note Date & Type Note Facility 06-01-2024 Miscellaneous Notes Formattin g of this note might be different from the original. [employer] called patient to schedule appointment. Patient stated she did not need an appointment, but her son has a referral to pulmonary. documented in this encounter [facility] 06-01-2024 Telephone encount er Note [employer] called patient to schedule appointment. Patient stated she did not need an appointment, but her son has a referral to pulmonary. [facility] 06-01-2024 Miscellaneous Notes Formattin g of this note might be different from the original. [employer] called and spoke with patient to schedule an appointment. Patient stated that she did not need an appointment, her son is to see pulmonary. Patient seemed to be confused as why I was calling for her and not her son. documented in this encounter [facility] 06-01-2024 Telephone encount er Note [employer] called and spoke with patient to schedule an appointment. Patient stated that she did not need an appointment, her son is to see pulmonary. Patient seemed to be confused as why I was calling for her and not her son. [facility] 01-06-2024 History of Presen t illness Narrative Reason for Appointment: Patient ID: Joanna Vital is a 28 y.o. female who presents for Well Women Visit Patient presents today for Annual Exam. MEDICATIONS Current Outpatient Medications Medication Instructions ergocalciferol (Vitamin D-2) 1.25 MG (22921 UT) capsule 1 capsule hydrOXYzine pamoate (VISTARIL) 25 mg, Oral, Every 24 hours ibuprofen 800 mg, Oral, Every 8 hours sertraline (ZOLOFT) 50 mg, Oral, Daily [...] Types: Cigarettes Quit date: 10/18/2021 Years since quittin.2 Smokeless tobacco: Not on file Substance Use [...] SYSTEMS Review of Systems: Review of Systems All other systems reviewed and are negative. OBJECTIVE Objective: Physical Exam Constitutional: Appearance: Normal appearance. She is well-developed. Genitourinary: Vulva normal. Breasts: Breasts are soft. Right: Normal. Left: Normal. Cardiovascular: Rate and Rhythm: Normal rate and regular rhythm. Pulmonary: Effort: Pulmonary effort is normal. Breath sounds: Normal breath sounds. Abdominal: General: Bowel sounds are normal. There [...] nursing note reviewed. Exam conducted with a furniture mechanic present. Vitals: Estimated body mass index is 30.36 kg/m as calculated from the following: Height as of this encounter: 5' 2 . Weight as of this encounter: 166 lb. BP: 108/68 Patient's last menstrual period was 12/31/2023. ASSESSMENT & PLAN ICD-10-CM 1. Well woman exam with routine gynecological exam Z01.419 Pap Smear 2. Endometriosis, vagina N80.42 ibuprofen 800 MG tablet Annual Exam: Patient presents today for an annual exam. Patient states she is doing well and patient would like her IUB refilled for her pain w/endometriosis. Rx was sent to pharmacy. Pap was obtained without difficulty. Follow Up: Patient is to return in one year for annual unless needed otherwise. Documented by Ioana Gutierres MA on behalf of: Delaney Orellana DO documented in this encounter [facility] 11-05-2023 History of Presen t illness Narrative Reason for Appointment: Patient ID: Joanna Vital is a 28 y.o. female who presents for Endometriosis Patient presents today for Acute Visit. MEDICATIONS Current Outpatient Medications Medication Instructions hydrOXYzine pamoate (VISTARIL) 25 mg, Oral, Every 24 hours minocycline (DYNACIN) 50 mg, Oral, 2 times daily sertraline (ZOLOFT) 50 mg, Oral, Daily traZODone (DESYREL) 25 mg, Oral, Nightly ALLERGIES No Known Allergies PROBLEMS Active Ambulatory Problems Diagnosis Date Noted No Active Ambulatory Problems Resolved Ambulatory Problems Diagnosis Date Noted No Resolved Ambulatory Problems No Additional Past Medical History HISTORY PAST MEDICAL HISTORY SOCIAL HISTORY History reviewed. No pertinent past medical history. Social History Tobacco Use Smoking status: Not on file Smokeless tobacco: Not on file Substance Use Topics Alcohol use: Not on file Drug use: Not on file FAMILY HISTORY Family History Problem Relation Name Age of Onset Endometriosis Mother SURGICAL HISTORY Past Surgical History: Procedure Laterality [...] Constitutional: Appearance: Normal appearance. She is well-developed. Cardiovascular: Rate and Rhythm: Normal rate and regular rhythm. Pulmonary: Effort: Pulmonary effort is normal. Breath sounds: Normal breath sounds. Abdominal: General: Bowel sounds are normal. There [...] nursing note reviewed. Exam conducted with a furniture mechanic present. Vitals: Estimated body mass index is 29.78 kg/m as calculated from the following: Height as of this encounter: 5' 2 . Weight as of this encounter: 162 lb 12.8 oz. BP: 110/60 Patient's last menstrual period was 11/03/2023. ASSESSMENT & PLAN ICD-10-CM 1. Endometriosis N80.9 2. Acne, unspecified acne type L70.9 minocycline (Dynacin) 50 MG tablet 3. Pelvic pain in female R10.2 4. Menorrhagia with regular cycle N92.0 5. Mittelschmerz N94.0 Pt presents to discuss pain, heavy bleeding, acne, endometriosis. Rx for minocycline faxed to pharmacy. Discussed dx lap for ISADORA poss FOE. Pt given 4 days a month off work- through FMLA. Pt given ultrasound and labs to have obtained. Documented by Paulina Sidhu LPN on behalf of: Delaney Orellana DO documented in this encounter [facility] 10-07-2023 Miscellaneous Notes Formattin g of this note might be different from the original. 10/06 HST order received Scheduled HST at [facility] on 10/18/23 at 730pm Mychart confirmation [employer] Chatted pre auth for ins add PSG order and 05/21 Kregel notes in epic AUTH STARTED HST/NPR Bri C. ([employer]) documented in this encounter [facility] 10-07-2023 Telephone encount er Note 10/06 HST order received Scheduled HST at [facility] on 10/18/23 at 730pm Mychart confirmation [employer] Chatted pre auth for ins add PSG order and 05/21 Kregel notes in epic [facility] 10-07-2023 Telephone encount er Note AUTH STARTED HST/NPR Bri C. ([employer]) [facility] 05-24-2023 Miscellaneous Notes Formattin g of this note might be different from the original. 05/21 received PSG order 05/23 Scheduled PSG at [facility] 8/9 (request Saturday) Confirmed via [employer] PSG order and 05/21 Kregel notes in epic documented in this encounter [facility] 05-24-2023 Telephone encount er Note 05/21 received PSG order 05/23 Scheduled PSG at [facility] 8/9 (request Saturday) Confirmed via Abiquo Grouphart [employer] PSG order and / Kregel notes in epic [facility] 05-22-2023 History of Presen t illness Narrative Video Visit via Real-time Synchronous Audiovisual Provider Location: [facility] [place]LA [place] [facility] PULMONARY/SLEEP MEDICINE [address] [place] [address] Patient Location: Patient's home Patient Location Computer Repairer: None Video Visit Consent Statement: I discussed risks, benefits, and alternatives of a real-time synchronous audiovisual consultation with the patient (and any accompanying persons) including the risks that the patient's personal health details and medical records will be discussed over real-time, synchronous, interactive video/audio/telecommunication technology, the visit will not be recorded without the express consent of both the provider and the patient, and that there are some limitations compared to sksj-ei-hcev evaluations. We elected to proceed. Joanna Vital arrives to the [facility] for initial visit on 05/22/2023. She is a 28 y.o. female followed at the Sleep Clinic for Suspected JOHAN. Sleep Questionnaire 05/22/2023 10:29 AM EDT - Filed by Patient Have you previously had a sleep study? No Do you have a partner (girlfriend/boyfriend, spouse, etc) ? No Do you or your bed partner currently notice any of the following symptoms? Excessive daytime sleepiness Yes Frequent snoring No Snore yourself awake from sleep No Witnessed apneas (holding breath during sleep) No Waking up choking, gasping or short of breath No Excessively sweating overnight Yes Waking up with dry mouth or sore throat No Morning headaches No Waking up to urinate at night Yes Nighttime heartburn interfering with sleep No Frequent disturbing dreams or nightmares Yes Sleep walking No Unusual behaviors during sleep No Injury to yourself or partner during sleep No Imagine seeing or hearing things that are not real as you fall asleep or wake up Yes Momentary inability to move body (paralysis) as falling askeep or waking up Yes Insomnia (difficulty falling asleep or staying asleep) Yes Teeth clenching/grinding No Waking up disoriented / confused No Do you currently receive medical equipment for sleep conditions? No Have you had any other treatments for sleep apnea? No How likely are you to doze off or fall asleep in the following situations, in contrast to feeling just tired? Sitting and reading slight chance of dozing Watching TV moderate chance of dozing Sitting inactive in a public place (e.g. a theater or a meeting) slight chance of dozing As a passenger in a car for an hour without a break moderate chance of dozing Lying down to rest in the afternoon when circumstances permit high chance of dozing Sitting and talking to someone slight chance of dozing Sitting quietly after a lunch without alcohol high chance of dozing In a car, while stopped for a few minutes in traffic no chance of dozing Weekday Sleep Schedule What time do you get into bed? 8:00 PM What time do you try to go to sleep? 9:00 PM Time it takes to fall asleep (minutes) 60 What time do you wake up? 5:40 AM What time do you get out of bed? 6:10 AM Weekend Sleep Schedule What time do you get into bed? 9:00 PM What time do you try to go to sleep? 10:00 PM Time it takes to fall asleep (minutes) 60 What time do you wake up weekends? 7:00 AM What time do you get out of bed? 8:00 AM Do you watch TV, read or use phone/computer in bed? Yes Number of lhnahu-oh-lnw-night awakenings per night? 3 or 4. Depends on the night Cause of awakenings (if applicable): Total average number of hours of sleep per night: 6 How many naps do you take a day and for how long? 0 Do you feel refreshed after your naps? No Do you do shift work or work overnights? No ETOH: 1 day ever other months 2 drinks in a setting Marijuana: has used gummies in past 5 mg 1 -2 times per week Denies any family history of JOHAN. Caffeine- 2 per day Current Outpatient Medications: sertraline (ZOLOFT) 50 mg tablet, Take 1 tablet (50 mg total) by mouth in the morning., Disp: , Rfl: Review of Systems Constitutional: Positive for fatigue. Negative for chills and fever. Respiratory: Negative for cough, shortness of breath and wheezing. Cardiovascular: Negative for chest pain. All other systems reviewed and are negative. Allergies: Reviewed with patient. Patient has no known allergies. Family History: No family history on file. Social History: Social History Socioeconomic History Marital status: Single Spouse name: Not on file Number of children: Not on file Years of education: Not on file Highest education level: Not on file Occupational History Not on file Tobacco Use Smoking status: Former Packs/day: 1.00 Years: 9.00 Additional pack years: 0.00 Total pack years: 9.00 Types: Cigarettes Quit date: 11/22/2021 Years since quittin.4 Smokeless tobacco: Not on file Vaping Use Vaping Use: Every day Substances: Nicotine, Flavoring Devices: Disposable Substance and Sexual Activity Alcohol use: Not on file Drug use: Never Sexual activity: Not on file Other Topics Concern Not on file Social History Narrative Not on file Social Determinants of Health Financial Resource Strain: Not on file Food Insecurity: No Food Insecurity (05/22/2023) Hunger Screening Food Insecurity - Worry: Never True Food Insecurity - Inability: Never True Transportation Needs: Not on file Physical Activity: Not on file Stress: Not on file Social Connections: Not on file Interpersonal Safety: Not on file Housing Instability: Not on file LAB RESULTS: IMAGING/PFT ECG CARDIOVASCULAR NON-INVASIVE SCANNED REPORT Result Date: 12/26/2014 Ordered by an unspecified provider. ECG CARDIOVASCULAR NON-INVASIVE SCANNED REPORT Ordered by an unspecified provider. No results found. Sleep Data: [place] Sleepiness Scale Impression: Diagnoses and all orders for this visit: Daytime sleepiness - Ambulatory referral to Sleep Medicine Suspected JOHAN Snoring Fatigue Daytime sleepiness History of anxiety History of depression History of PTSD GERD Plan Discussed diagnosis, its evaluation, treatment and usual course. All questions answered. Educational material distributed. No orders of the defined types were placed in this encounter. Orders Placed or Reconciled This Encounter Medications sertraline (ZOLOFT) 50 mg tablet Sig: Take 1 tablet (50 mg total) by mouth in the morning. She is to have PSG completed. . Diet and exercise were discussed in detail. Any age appropriate or routine screening per PCP. Follow up in 6 Months time. If her condition should change prior to this she is encouraged to give our office a call. Discussed triggers to call back before follow up including weight change > 10%, major medical issues including stroke, arrhythmia or heart attack, or significant change in symptoms. This encounter was completed completely by video visit. The patient was made aware that this may be a billable service and consented to the video visit. This call lasted approximately 14 minute and more than 50% of the time was spent in direct counseling. With 10 minutes non face to face time spent documenting in electronic medical record and preparing to see patient. EDUCATION: Health risks associated with untreated JOHAN were discussed (cardiopulmonary, cerebrovascular, and anesthesia/sedative-related). Risks associated with excessive daytime sleepiness, particularly while driving/operating machinery were discussed. The patient was instructed to avoid such activities if feeling sleepy, and to stop the activity if sleepiness occurs (gut puller at the next safe opportunity if driving). Discussed triggers to call back before next office visit including weight change > 10%, major medical issues including stroke, arrhythmia or heart attack, or significant change in symptoms. This note is dictated with the use of M*Modal.Please note that this dictation was completed with computer voice recognition software. Quite often unanticipated grammatical, syntax, homophones, and other interpretive errors are inadvertently transcribed by the computer software. Please disregard these errors. Please excuse any errors that have escaped final proofreading. ADRIANA Pulido 05/22/23 1306 documented in this encounter [facility] 05-22-2023 Instructions ADRIANA Pulido - 05/22/2023 11:45 AM EDT If you re looking for general health and wellness resources, please visit [email or web address]. documented in this encounter [facility] 01-19-2021 Note [facility] [place], [place] NAME: JOANNA VITAL DATE OF : MEDICAL REC#: [id number] APPLIED PSYCHOLOGY TEACHER: [address] SILVER ADMIT DATE: 01/19/2021 10:43:00 MACHINE SET UP OPERATOR PAPER GOODS DATE: 01/20/2021 07:00 DICTATING PHYSICIAN: DELANEY ORELLANA DICTATION DATE: 01/19/2021 13:00 OPERATIVE NOTE OPERATION DATE: 01-19-21 ANESTHETIC:General. CTE TEACHER:OLLIE Ferrell PREOPERATIVE DIAGNOSIS: 1. Pelvic pain. 2. Dyspareunia. POSTOPERATIVE DIAGNOSIS: 1. Pelvic pain. 2. Dyspareunia. 3. Adhesions to the pelvic side wall. 4. Endometrial cyst in the posterior cul-de-sac. PROCEDURE NAME:Diagnostic laparoscopy with lysis of bowel adhesions from the pelvic side wall. URINE OUTPUT:Yellow and clear. BLOOD LOSS:5 mL. FINDINGS: Normal appearing ovaries, uterus, and tubes. There were adhesions of the bowel to the pelvic side wall which was released using monopolar scissors. An endometrial cyst was seen in the posterior cul-de-sac as well as on the bladder. PROCEDURE: The patient was taken back to the Operating Room where she was placed in dorsal lithotomy position after given general anesthesia. The patient was prepped and draped in normal sterile fashion. A sponge stick was placed into the patient's vagina. Attention was turned to the patient's abdomen, where a small umbilical incision was made. The fascia was tented using Omayra clamps and the fascia was entered sharply. Confirmation of intraabdominal placement of the 10 mm port was confirmed under direct visualization using a laparoscope. The patient's abdomen was then insufflated using CO2 gas with approximately 4 liters. A second port was placed lt laterally, this was done under direct visualization with a 5 mm port. Survey of the patient's abdomen demonstrated normal liver and gallbladder. Survey of the patient's pelvic anatomy demonstrated normal appearing ovaries and tubes as well as normal appearing uterus. endometrial implants seen in posterior culdesac could be noted, no evidence of any pelvic disease was seen. Bowel adhesions were seen to the pelvic sidewall which was released using monopolar scissors. All instruments were removed from the patient's abdomen. The patient's abdomen was insufflated using CO2 gas. The patient tolerated the procedure well. Sponge stick was removed from the patient's vagina. The patient's infraumbilical fascia was closed using #0 Vicryl on a GI needle. The patient's skin was closed laterally and infraumbilically using 4-0 Vicryl. The patient tolerated the procedure well. Sponge, lap and needle counts were correct x 2. The patient taken to Recovery Room in stable condition. Electronically Authenticated and Edited by: Delaney Orellana DO on 01/20/2021 09:06 AM [facility] Signed and Approved by: DR DELANEY ORELLANA . 01/20/2021 09:06:[address] [facility] 09-05-2020 Evaluation note Includes: Assessments for all patient encounters Findings depression Established Pat ient with Jennie Martinez [facility] 09/05/2020 Depression Medical Established Patient with Gladis Lopez [facility] 09/05/2020 Encounter for Immunization Medical Estab lished Patient with Gladisguillaume Lopez [facility] 09/05/2020 Esophageal reflux without esophagitis Medical Established Patient with Gladisguillaume Lopez [facility] 09/05/2020 Generalized anxiety disorder Medical Est ablished Patient with Gladis Lopez [facility] 09/05/2020 Z68.26 - Body mass index [BM I] 26.0-26.9, adult Medical Established Patient with Gladis Lopez [facility] 09/05/2020 Alcohol abuse - uncomplicated [facility] with Jennie Martinez [facility] 08/24/2020 Depressive disorder Telebehavioral He alth with Jennie Martinez [facility] 08/24/2020 Generalized anxiety disorder [facility] with Jennie Martinez [facility] 08/24/2020 Nicotine dependence uncomplicated [facility] with Jennie Martinez [facility] 08/24/2020 Body mass index Medical New Patient with Gladis Lopez [facility] 08/22/2020 Depression Medical New Patient with Gladis Lopez [facility] 08/22/2020 Diabetes Risk Test Score was one score 08/22/2020 Medical New Patient with Gladis Lopez [facility] 08/22/2020 Generalized anxiety disorder Medical New Patient with Gladis Lopez [facility] 08/22/2020 Hypothyroidism Medical New Patient with Gladis Lopez [facility] 08/22/2020 Nicotine dependence Medical New Patient with Gladis Lopez [facility] 08/22/2020 Overweight Medical New Patient with Gladis Lopez [facility] 08/22/2020 Routine history and physical Medical New Patient with Gladis Lopez [facility] 08/22/2020 Visit for: screening for hum an immunodeficiency virus Medical New Patient with Gladis Lopez [facility] 08/22/2020 Vitamin B12 deficiency Medical New Patie nt with Gladis Lopez [facility] 08/22/2020 Vitamin D deficiency Medical New Patient with Gladis Lopez [facility] 08/22/2020 [facility] Work Phone: [phone]) 370-203306-16-2021 Evaluation note Includes: Assessments for all patient encounters Findings Encounter Date Alcohol abuse - uncomplicated [facility] 08/24/2020 Depressive disorder Telebehavioral He alth with Jennie Martinez [facility] 08/24/2020 Generalized anxiety disorder [facility] with Jennie Martinez [facility] 08/24/2020 Nicotine dependence uncomplicated Tel [facility] with Jennie Martinez [facility] 08/24/2020 Body mass index Medical New Patient with Gladis Lopez [facility] 08/22/2020 Depression Medical New Patient with Gladis Lopez [facility] 08/22/2020 Diabetes Risk Test Score was one score 08/22/2020 Medical New Patient with Gladis Lopez [facility] 08/22/2020 Generalized anxiety disorder Medical New Patient with Gladis Lopez [facility] 08/22/2020 Hypothyroidism Medical New Patient with Gladis Lopez [facility] 08/22/2020 Nicotine dependence Medical New Patient with Gladis Lopez [facility] 08/22/2020 Overweight Medical New Patient with Gladis Lopez [facility] 08/22/2020 Routine history and physical Medical New Patient with Gladis Lopez [facility] 08/22/2020 Visit for: screening for hum an immunodeficiency virus Medical New Patient with Gladis Lopez [facility] 08/22/2020 Vitamin B12 deficiency Medical New Patie nt with Gladis Lopez [facility] 08/22/2020 Vitamin D deficiency Medical New Patient with Gladis Lopez [facility] 08/22/2020 [facility] Work Phone: 1([phone]) 178-599206-14-2021 History general Narrative - Reported Includes: Medical History in patient's chart Description Last Updated History of depression 08/22/2020 No previous hospitalizations 08/22/2020 [facility] Work Phone: Evaluation note* Diagnosis Well woman exam with routine gynecological exam Routine gynecological examination Endometriosis, vagina Endometriosis of rectovaginal septum and vagina [facility] Diagnosis Endometriosis Endometriosis, site unspecified Acne, unspecified acne type Pelvic pain in female Unspecified symptom associated with female genital organs Menorrhagia with regular cycle Mittelschmerz [facility] Diagnosis JOHAN (obstructive sleep apnea)- Primary Obstructive sleep apnea (adult) (pediatric) Daytime sleepiness Fatigue, unspecified type Former smoker Personal history of tobacco use, presenting hazards to health [facility] Sleep-related breathing disorder- Primary [facility] Narrative History of Present Illness not supported for this document type No History of [facility] Work Phone: Instructions Instructions not supported for this document type No Instructions [facility] Work Phone: InstructionsNot on filedocumented in this encounter [facility] SystemInstructionsNot on filedocumented in this encounter [facility] SystemInstructionsNot on filedocumented in this encounter [facility] outcome Narrative Includes: Evaluations & Outcomes for active Goals No Outcomes [facility] Work Phone: Reason for referral (narrative)No Reason for Referral [facility] Work Phone: Reason for visit Narrative* Consultation (Routine) - Pending Review Specialty Diagnoses / Procedures Referred By Piotr riley Referred To Contact Pulmonary Medicine Diagnoses Daytime sleepiness Sully Dawson DO [address] [place] [address] [facility] Sleep [facility] [address] [id number] Referral ID Status Reason Start Date Expiration Date Visits Requested Visits Authorized [id number] Pending Review Specialty Services Required 05/21/2023 05/20/2024 1 1 [employer] Systems SystemReview of systems Narrative - Reported Review of Systems not supported for this document type No Review of Systems [facility] Work Phone: Summary Purpose Family History Description Last Updated Maternal history of depression Maternal history of psychiatric disorder s bipolar 08/22/2020 Paternal history of hypertension 021 Sor[place] history of psychiatric disorders anxiety 08/22/2020 Advance Directives No Advanced Directives Records Found Includes: Current Advance Directives No Advance Directives Recorded Includes: Current Advance Directives No Advance Directives Recorded Includes: Current Advance Directives No Advance Directives RecordedNo Advanced Directives Records FoundNo Advanced Directives Records FoundNo Advanced Directives Records FoundNo Advanced Directives Records Found Physical Exam Physical Exam not supported for this document type No Physical Exam Recorded Physical Exam not supported for this document type No Physical Exam Recorded Physical Exam not supported for this document type No Physical Exam Recorded Reason for Referral Specialty Diagnoses / Procedures Referred By Contac t Referred To Contact Diagnoses JOHAN (obstructive sleep apnea) Procedures PSG Diagnostic Pily Lazo SALES SERVICE TECHNICIAN-TRANSIT AUTHORITY POLICE OFFICER [address] [facility] [address] [place] [address] Referral ID Status Reason Start Date Expiration Date V isits Requested Visits Authorized [id number] Pending Review 05/22/2023 05/21/2024 1 1 Specialty Diagnoses / Procedures Referred By Contac t Referred To Contact Diagnoses Sleep-related breathing disorder Procedures Home sleep study Annabella Dolan SALES SERVICE TECHNICIAN-TRANSIT AUTHORITY POLICE OFFICER [address] [address] Referral ID Status Reason Start Date Expiration Date V isits Requested Visits Authorized [id number] Pending Review 10/07/2023 10/06/2024 1 1 Additional Source Comments INFORMATION SOURCE (unrecogn ized section and content) DATE CREATED AUTHOR 09/06/2017 [facility] DATE CREATED AUTHOR AUTHOR'S ORGANIZ ATION 04/21/2021 [facility] [place] [facility] DATE CREATED AUTHOR AUTHOR'S ORGANIZ ATION 05/23/2023 [facility] DATE CREATED AUTHOR AUTHOR'S ORGANIZ ATION 01/07/2024 [facility] EPIC DATE CREATED AUTHOR AUTHOR'S ORGANIZ ATION 05/01/2024 [facility] Reason for Visit (unrecogniz ed section and content) Reason Comments Well Women Visit Reason Comments Endometriosis Reason Onset Date Comments Sleep Lab 05/24/2023 PSG Reason Onset Date Comments Sleep Lab 10/07/2023 [facility] Care Teams (unrecognized sec tion and content) Track Greaser Relationship Specialty Start Date End Date Sully Dawson DO [address] [place] [address] PCP - General 05/22/23 Track Greaser Relationship Specialty Start Date End Date Sully Dawson DO [address] [place] [address] PCP - General 05/22/23 Track Greaser Relationship Specialty Start Date End Date Alecleat Sully Woods DO [address] [place] [address] PCP - General 05/22/23 Track Greaser Relationship Specialty Start Date End Date Alecleta Sully Woods DO [address] [place], [place] [id number] PCP - General 05/22/23 Track Greaser Relationship Specialty Start Date End Date [facility] [address] [place], [place] PCP - General Family Medicine 04/29/24 FOR RECORDS PERTAINING TO PATIENTS WHO ARE OR HAVE BEEN ENROLLED IN A CHEMICAL DEPENDENCY/SUBSTANCEABUSE PROGRAM, SOME INFORMATION MAY BE OMITTED. This clinical summary was aggregated from multiple sources. Caution should be exercised in using it in the provision of clinical care. This summary normalizes information from multiple sources, and as a consequence, information in this document may materially change the coding, format and clinical context of patient data. In addition, data may be omitted in some cases. CLINICAL DECISIONS SHOULD BE BASED ON THE PRIMARY CLINICAL RECORDS. [facility]. provides no warranty or guarantee of the accuracy or completeness of information in this document.
== END 2024-08-13 19:44 | disposition home or self-care (01) ==
LOC: LAB 19:43
PROVIDERS: Visit Provider Obstetrics & Gynecology
DX: N64.4 Mastodynia (principal); N64.52 Nipple discharge
CPT/HCPCS: 87070; 87075

== ENCOUNTER 2024-08-20 11:32 | Outpatient (OUT) | payer OTHER, SELFPAY ==
--- OUTSIDE RECORDS SUMMARY | 2024-05-29 06:00 | XMS_ITS ---
Author Organization [facility] Address [address] [place], [place] [address] Care Team Providers Care Spanish Language Lecturer Name Role Phone Chandni Cervantes Primary Care Provider Renetta Jiménez Unavailable [phone] REASON FOR VISIT 2 WEEK F/U Social History Sex Assigned At : Social History Observation Description Sex Assigned At Female Encounters Encounter Location Date Provider Diagnosis Main [address] [place], [place] [id number] 05/29/2024 Renetta Jiménez Plan Of Treatment No Information Progress Notes * Efrain VITALOB: 7 (29 yo F)Acc No.[id number]:05/29/2024 Patient: Adria LOPEZJoanna [place] Provider: DEBI Redd :1995 A ge:29 Y S ex:Female Date:05/29/2024 Address:[address] [place] [address], [id number] Pcp:Chandni Cervantes Subjective: * Chief Complaints: * 1 . 2 WEEK F/U. * Medical History: Objective: * Vitals: Assessment: Plan: * Treatment: Care Plan: * Problems: * Billing Information: * Visit Code: * Procedure Codes: Care Plan Details* * Electronic signature of DEBI Cleveland on 08/20/2024 at 11:40 AM EDT Sign off status: Pending * Provider: DEBI Redd Date: 05/29/2024 Generated for Marcelino brooks/Deepali/Dayanaitting on: 0 08/20/2024 11:40 AM EDT
--- OUTSIDE RECORDS SUMMARY | 2024-08-13 11:50 | XMS_ITS | Encounter Summary ---
Author Organization [facility] Address [address] [place] [address] Care Team Providers Care Liquefaction Plant Operator Name Role Phone Unavailable Primary Care Provider Unavailabl e Reason for Visit * Reason Comments Breast Problem Encounter Details Date Type Department Care Team ([facility] Contact Info) Description 08/13/2024 11:50 AM EDT Office Visit [facility] [address] [facility] [place] [phone] Clem Orellana, DO [address] [facility] [address] [place] [place], [place] [phone] Pain of both breasts; Menorrhagia with regular [...] 4:03 PM EDT documented in this encounter Progress Notes * Sandy Flores LPN - 08/13/2024 11:50 AM EDT Images from the original note were not included. Reason for Appointment: Patient ID: Joanna Vital is a 29 y.o. female who presents for Breast Problem Patient presents today for Consult appointment. MEDICATIONS Current Outpatient Medications Medication Instructions ergocalciferol (Vitamin D-2) 1.25 MG (00830 UT) capsule 1 capsule hydrOXYzine pamoate (VISTARIL) 25 mg, Oral, Every 24 hours sertraline (ZOLOFT) 50 mg, Oral, Daily traZODone (DESYREL) 25 mg, Oral, Nightly ALLERGIES No Known Allergies PROBLEMS Active Ambulatory Problems Diagnosis Date Noted No Active Ambulatory Problems Resolved Ambulatory Problems Diagnosis Date Noted No Resolved Ambulatory Problems Past Medical History: Diagnosis Date Endometriosis Ovarian cyst HISTORY PAST MEDICAL HISTORY SOCIAL HISTORY Past Medical History: Diagnosis Date Endometriosis Ovarian cyst Social History Tobacco Use Smoking status: Former Current packs/day: 0.00 Average packs/day: 1 pack/day for 10.0 years (10.0 ttl pk-yrs) Types: Cigarettes Quit date: 10/18/2021 Years since quittin.8 Smokeless tobacco: Not on file Substance Use Topics Alcohol use: Yes Comment: Maybe once a month or every other month ill have a drink Drug use: Yes Frequency: 4.0 times per week Types: Marijuana Comment: For pain and sleep FAMILY HISTORY Family History Problem Relation Name Age of Onset Endometriosis Mother Mothers side of family. Multiple. Breast cancer Mother Mothers side of family. Multiple. Hypertension Father Dmitry Vital SURGICAL HISTORY Past Surgical History: Procedure Laterality Date LAPAROSCOPY DIAGNOSTIC / BIOPSY / ASPIRATION / LYSIS WISDOM TOOTH EXTRACTION REVIEW OF SYSTEMS Review of Systems: Review of Systems Constitutional: Negative. HENT: Negative. Eyes: Negative. Respiratory: Negative. Cardiovascular: Negative. Gastrointestinal: Negative. Genitourinary: Negative. Musculoskeletal: Negative. Skin: Negative. Neurological: Negative. All other systems reviewed and are negative. Hematological: Negative. Endocrine: Negative. Allergic/Immunologic: Negative. OBJECTIVE Objective: Physical Exam Constitutional: Appearance: Normal appearance. She is well-developed. Genitourinary: Breasts: Breasts are soft. Right: Nipple discharge present. Left: Nipple discharge present. Cardiovascular: Rate and Rhythm: Normal rate and regular rhythm. Pulmonary: Effort: Pulmonary effort is normal. Breath sounds: Normal breath sounds. Chest: Abdominal: General: Bowel sounds are normal. There is no distension. Palpations: Abdomen is soft. Tenderness: There is no abdominal tenderness. There is no guarding or rebound. Musculoskeletal: General: No swelling. Normal range of motion. Right lower leg: No edema. Left lower leg: No edema. Neurological: Mental Status: She is alert and oriented to person, place, and time. Skin: General: Skin is warm and dry. Psychiatric: Mood and Affect: Mood normal. Behavior: Behavior normal. Vitals and nursing note reviewed. Exam conducted with a palm gatherer present. Vitals: Estimated body mass index is 32.42 kg/m?? as calculated from the following: Height as of 01/06/24: 5' 2 . Weight as of this encounter: 177 lb 4 oz. BP: 98/72 No LMP recorded. ASSESSMENT & PLAN ICD-10-CM 1. Pain of both breasts N64.4 Prolactin 2. Menorrhagia with regular cycle N92.0 CBC and differential TSH hCG, quantitative, Protime-INR T4, free APTT Hemoglobin A1c APTT 3. Nipple discharge N64.52 Prolactin Patient presented to office today for bilateral breast pain, breast lump and nipple discharge for the past 1-2 months. Bilateral lumps noted on both breast and reassurance given. Discussed managementof pain/discomfort with Vitamin E Lotion, [place] Oil or Asper cream. Advised patient to ensure that she was wearing a supportive bra and to possibly double up on sports bras until symptoms subside.Patient given lab slip to have lab draw obtained. Will sent Augmentin 875mg to patients pharmacy and patient to schedule for TeleHealth in 2 weeks for follow up. Documented by Sandy Flores LPN on behalf of: Clem Orellana DO documented in this encounter Plan of Treatment Upcoming Encounters Date Type Department Care Team (Late st Contact Info) Description 08/26/2024 8:00 AM EDT Office Visit [facility] [address] [facility] [place] [phone] Clem Orellana DO [address] [facility] [place] [address] Scheduled Orders Name Type Priority Associated Diagnoses [...]
--- OUTSIDE RECORDS SUMMARY | 2024-08-20 11:40 | XMS_ITS | Encounter Summary ---
Author Organization [facility] Address [address] [place] [address] Care Team Providers Care Medicine Man Name Role Phone Unavailable Primary Care Provider Unavailabl e Encounter Details Date Type Department Care Team (Late Contact Info) Description 08/13/2024 Bamboo flowsheet [facility] [address] [place] [address] Clem Orellana, DO [address] [place] [address] Social History Tobacco Use Types Packs/Day [...] Visit [facility] [address] [place] [address] Clem Orellana, [facility] [address] [place], [place] [id number] documented as of this encounter Visit Diagnoses Not on filedocumented in this encounter
--- OUTSIDE RECORDS SUMMARY | 2024-08-20 11:40 | XMS_ITS | Encounter Summary ---
Author Organization [facility] Address [address] [place] [address] Care Team Providers Care Rn Charge Name Role Phone Unavailable Primary Care Provider [...] 08/26/2024 8:00 AM EDT Office Visit [facility] [address] [address] Clem Orellana, DO [address] [place] [address] documented as of this encounter Visit Diagnoses Not on filedocumented in this encounter
--- OUTSIDE RECORDS SUMMARY | 2024-08-20 11:40 | XMS_ITS | Clinical Summary ---
Author Organization 27 [address] [facility] tem Address [id number] [address] [place] [address] Care Team Providers Care Solicitor Patent Name Role Phone Services, [facility] Primary Care Provider Allergies No known active allergies Medications sertraline (ZOLOFT) 50 mg tablet Take 1 tablet (50 mg total) by mouth in the morning. 12/14/2022 Active Active Problems No known active problems Encounters Date Type Department Care Team Description 06/01/2024 Telephone [facility] [address] [place] [address] Taylor Valdes CMA 06/01/2024 Telephone [facility] [address] [place] [place] [address] Taylor Valdes CMA from Last 3 [...] of Phone Billing Address Personal/Family Self [address] [place] [address] [employer] Member Subscriber Plan / Payer (Ef fective 2020-Present) Name:Joanna Vital Member ID:[id number] Relation to Subscriber:Self Name:Joanna Vital Subscriber ID:[id number] Payer ID:[id number] (NAIC) Type:Not on file Address: [facility] [id number] [place] [address] [place] [employer] Member Subscriber Plan / Payer (Ef fective 2022-Present) Name:Joanna Vital Relation to Subscriber:Self Name:Joanna Vital Payer ID:[id number] (NAIC) Group ID:Not on file Type:Not on file Address: [address] [address] Care Teams Solicitor Patent Relationship Specialty Start Date End Date Services, [facility] [address], [place] PCP - General Family Medicine 04/29/24
--- OUTSIDE RECORDS SUMMARY | 2024-08-20 11:40 | XMS_ITS | Clinical Summary ---
Author Organization [facility] Healthcare Address [address] [place] [address] Care Team Providers Care Janitorial Account Manager Name Role Phone Unavailable Primary Care Provider [...] 06/28/2023 Active ergocalciferol (Vitamin D-2) 1.25 MG (03150 UT) capsule 1 capsule 11/07/2023 Active amoxicillin-cla vulanate (Augmentin) 875-125 MG tabletIndicatio ns:Pain of both breasts,Nipple discharge Take 1 tablet (875 mg) by mouth in the morning and 1 tablet (875 mg) before bedtime. Do all this for 10 days. 20 tablet 08/13/2024 Active Encounters Date Type Department Care Team Description 08/13/2024 11:50 AM EDT Office Visit [facility] [address] [facility] [address] [id number] Clem Orellana, Pain of both breasts; Menorrhagia with regular cycle; Nipple discharge 08/13/2024 Bamboo flowsheet [facility] [address] [facility] [address] [address] Clem Orlelana DO 08/13/2024 Travel from Last 3 Months [...] 08/26/2024 8:00 AM EDT Office Visit [facility] [address] [facility] [address] Clem Orellana, [address] [place] [address] Health Maintenance Due Date Last Done Comments Influenza Vaccine Completed 05/28/2024, 11/15/2019 Insurance * Guarantor: Joanna Vital Account Type Relation to Patient Date of Phone Billing Address Personal/Family Self 1995 [address] [facility] [address] [place] [address] [employer] Member Subscriber Plan / Payer (Ef fective 2022-Present) Name:Joanna Vital Relation to Subscriber:Self Name:Amanuel Joanna Payer ID:Not on file Group ID:Not on file Type:Not on file Address: [address] [place] [address]
--- OUTSIDE RECORDS SUMMARY | 2024-08-20 11:40 | XMS_ITS | Encounter Summary ---
Author Organization [facility] Address [address] [place] [address] Care Team Providers Care Record Filing Clerk Name Role Phone Unavailable Primary Care Provider Unavailabl e Encounter Details Date Type Department Care Team ([facility] Contact Info) Description 01/15/2024 Orders Only [facility] [address] [facility] [place] [address] Yuni Celeste LPN [address] [place] [address] Social History Tobacco Use Types [...] Upcoming Encounters Date Type Department Care Team ([facility] Contact Info) Description 08/26/2024 8:00 AM EDT Office Visit [facility] [address] [facility] [place] [address] Clem Orellana DO [address] [place] [address] Dr A[address]en [place], [place] [id number] documented as of this encounter Procedures Procedure [...]
--- OUTSIDE RECORDS SUMMARY | 2024-08-20 11:40 | XMS_ITS | Data Portability ---
Author Organization [place] - [facility] , [facility] [place] Address [address] [place] [address] Assessment No assessment recorded. Plan of Treatment [...] By Organization Details Last Modified Time 04/02/2024 [id number] nipple discharge : care instructions Not available 04/02/2024 12:22:24 breast lumps: care instructions Not available 04/02/2024 12:22:24 Reason for Referral None Reported. Problems Name Problem SNOMED Code Status Onset Date Resolution Date Notes Provider Name and Address Organization Details Recorded Time Depressive disorder 60285307 Active Rosalinda Franklin [facility] [place] - Included [facility] 13:47:26 Problem Notes None recorded. Procedures Surgical History Date Name Laterality Status Provider Name and Address Organization Details Recorded Time procedure completed Rosalinda Franklin [facility] I [facility] 02/12/2024 13:47:57 Imaging Results None [...] Time Father No current problems or disability [email or web address] Not available 02/11 13:48:03 Mother No current problems or disability [email or web address] Not available 02/11 13:48:03 Medical History No medical history recorded. Gynecological HistoryNo gynecological history recorded. Obstetrics History GPAL:G 0 P 0 0 0 0 Past Encounters Encounter ID Performer Location Encounter Start Date Encounter Closed Date Diagnosis/Indication Diagnosis SNOMED-CT Code Diagnosis ICD10 Code Diagnosis Note [id number] AASHISH Still [facility] [address] [facility] [address] [place] [address] 04/02/2024 11:49:01 04/02/2024 18:22:52 Breast lump [id number] N63.0 Ultrasound ordered. I advised patient to use cold compress or soak a cloth in warm water and place on breast. I also advised tylenol or ibuprofen for pain relief. Patient also instructed to avoid tight fitting clothes. Advised to schedule appt with pcp or fire control technician for further eval. I advised the patient if their symptoms worsen or do not improve, to call us back or seek in person care. Diagnosis and treatment plan discussed with the patient, and they voice agreement and understand ing of the plan. Discharge from nipple 54 [id number] N64.52 Health Concerns Section Related Observation LastModified [...] Ja rra Vital 04/15/2024 1 DMITRI ORELLANA [facility] [id number] Jarra Vital [id number] Jarra Vital 04/09/2024 DMITRI ORELLANA [id number] Jarra Vital [id number] Jarra Vital 04/02/2024 2 *SELF PAY* [id number] Jarra Vital [id number] Jarra Vital Notes Date Note Type Note [...] state at the time of visit : [place] CC: questionAge: 29Gender: f HPI:She has hx [...] no nipple swelling, no erythema AASHISH Still [address] [place] [address] [address], [place], [address], [facility] 04/02/2024 12:24:12 OBGyn Episode No OBEpisode recorded.
[2024-08-20 12:19] LABS: Basophils Absolute Auto 0.1 10^3/uL (0.0-0.1); Basophils Percent Auto 0.7 % (0.2-2.0); Eosinophils Absolute Auto 0.4 10^3/uL (0.0-0.7); Eosinophils Percent Auto 5.6 % (0.9-7.0); Hematocrit 37.7 % (36.0-48.0); Hemoglobin 12.9 g/dL (12.0-16.0); Immature Granulocytes Abs Auto 0.02 10^3/uL (0.00-0.03); Immature Granulocytes Pct Auto 0.3 % (0.0-0.5); Lymphocytes Absolute Auto 2.7 10^3/uL (1.2-3.8); Lymphocytes Percent Auto 36.8 % (20.5-60.0); Mean Corpuscular HGB Conc 34.2 g/dL (29.9-35.2); Mean Corpuscular Hemoglobin 29.5 pg (26.7-34.0); Mean Corpuscular Volume 86.3 fL (81.0-99.0); Mean Platelet Volume 11.8 fL (9.5-13.5); Monocytes Absolute Auto 0.6 10^3/uL (0.3-0.8); Monocytes Percent Auto 8.1 % (1.7-12.0); Neutrophils Absolute Auto 3.6 10^3/uL (1.4-6.5); Neutrophils Percent Auto 48.5 % (43.0-75.0); Platelet Count 263 10^3/uL (150-450); Red Blood Count 4.37 10^6/uL (4.20-5.40); Red Cell Distribution Width 11.9 % (11.0-15.0); White Blood Count 7.4 10^3/uL (4.0-11.0)
[2024-08-20 12:29] LABS: INR 1.12; Partial Thromboplastin Time 26.8 sec (22.3-36.2); Prothrombin Time 11.7 sec (9.0-11.6)
[2024-08-20 12:50] LABS: Thyroid Stimulating Hormone 2.283 uIU/mL (0.358-3.740)
[2024-08-20 12:51] LABS: HCG Quantitative <1 mIU/mL
[2024-08-20 13:06] LABS: Free T4 0.88 ng/dL (0.76-1.46)
[2024-08-20 15:29] LABS: Estimated Average Glucose 88 mg/dL; Glycohemoglobin A1C 4.7 % (4.5-6.2)
== END 2024-08-20 11:33 | disposition home or self-care (01) ==
PROVIDERS: Visit Provider Obstetrics & Gynecology
DX: N92.0 Excessive and frequent menstruation with regular cycle (principal)
CPT/HCPCS: 36415; 83036; 84439; 84443; 84702; 85025; 85610; 85730